=== PATIENT | female | born 1985 | race Caucasian/White ===

== ENCOUNTER 2020-08-17 09:40 | Emergency (ER) | payer OTHER, SELFPAY ==
--- NOTE | 2020-08-17 09:44 | ED.URI ---
HPI - URI/Sore Throat General Chief Complaint: Upper Respiratory Infection Stated Complaint: SORE THROAT Time Seen by Provider: 08/17/20 09:44 Source: patient and RN notes reviewed History of Present Illness HPI Narrative: Patient is a 34-year-old female who presents the urgent care with complaints of a sore throat since yesterday at 2 PM. Patient states it is bothering her specifically on the right side. Patient states her boss was recently diagnosed with strep. Denies any known Covid exposure. States that she has been taking her daily Zyrtec but denies any added use of [id number]-[id number] medication for symptom relief. Denies any additional upper respiratory symptoms. Denies fever, chills, nausea, vomiting. No other acute complaints. No acute distress noted. Patient states that her PCP called her in a prescription for amoxicillin but she wanted to actually have the strep swab tested . States that she has not taken the amoxicillin yet. Patient aware of the plan of care. Some parts of this dictation were generated by voice recognition software and may contain typographical and/or grammatical inaccuracies. Related Data Allergies Allergy/AdvReac Type Severity Reaction Status Date / Time No Known Allergies Allergy Unknown Verified 03/05/20 13:52 Review of Systems Review of Systems: Narrative: CONSTITUTIONAL: Denies fever, chills, or sweats. EYES: Denies visual changes, redness, or discharge. ENT: Reports of sore throat CARDIOVASCULAR: Denies chest pain, palpitations, or edema. RESPIRATORY: Denies cough or dyspnea. GASTROINTESTINAL: Denies abdominal pain, nausea, vomiting, or diarrhea. GENITOURINARY: Denies dysuria or hematuria. SKIN: Denies rash or itching. MUSCULOSKELETAL: Denies back pain, joint pain, or myalgia. NEUROLOGIC: Denies headache, numbness, or weakness. All other systems reviewed are negative, except as documented in HPI. [facility] Past Medical History Medical History (Updated 08/17/20 @ 10:05 by SHANNA Chance) ADHD Anxiety Depression Foot fracture, right Left hand fracture Left scapula fracture Migraine Right arm fracture Right hand fracture Surgical History Surgical History No significant past surgical history Social History Social History Smoking status: Never smoker Alcohol intake: current Comments At the time of my signature, I reviewed and agree with the nursing past medical, surgical, social, and family history. There is no relevant family history pertinent to the patient complaint. Exam Narrative: Exam Narrative: GENERAL: This is a well-nourished, well-developed patient, in no apparent distress. HEAD: normocephalic, atraumatic. EYES: PERRL. Sclera clear/white. Vision is grossly intact. EARS: External ears normal, auditory canals clear and without drainage, TMs normal without perforation. Hearing grossly intact. NOSE: External nose normal with no obvious nasal discharge, nares without redness, no rhinorrhea. THROAT: Mucous membranes moist, moderate erythema noted posterior oropharynx with mild bilateral tonsillar edema without exudate or ulceration. Mild postnasal drainage. NECK: Neck supple, non-tender without lymphadenopathy CARDIOVASCULAR: Regular rate and rhythm without murmurs, gallops, or rubs. RESPIRATORY: Clear to auscultation. Breath sounds equal bilaterally. No wheezes, rales, or rhonchi. SKIN: warm, intact with no suspicious lesions or rash, good texture and turgor. NEURO: awake, alert, and oriented to person, place and time. There were no obvious focal neurologic abnormalities. EXTREMITIES: No clubbing, cyanosis, or edema. Course Vital Signs Vital signs: Vital Signs Temperature 96.5 F L 08/17/20 09:46 Pulse Rate 88 08/17/20 09:46 Respiratory Rate 20 08/17/20 09:46 Blood Pressure 149/75 H 08/17/20 09:46 Pulse Oximetry 99 08/17/20 09:46
[2020-08-17 09:46] VITALS: BP 149/75; PULSE 88; RESP 20; TEMP 35.8; O2SAT 99
== END 2020-08-17 10:11 | disposition home or self-care (01) ==
PROVIDERS: Emergency Provider Nurse Practitioner Family
DX: J02.9 Acute pharyngitis, unspecified (principal)
CPT/HCPCS: 87081; 87880; 99213; G0463

== ENCOUNTER 2020-08-18 08:56 | Outpatient (NON) | payer OTHER, SELFPAY ==
[2020-08-18 22:13] LABS: SARS-CoV-2 RNA PCR Positive
== END 2020-08-18 08:57 ==
LOC: ANHCOVIDDT 08:56
PROVIDERS: Visit Provider Family Medicine
DX: U07.1 COVID-19 (principal)
CPT/HCPCS: 87635; C9803; U0003

== ENCOUNTER 2021-02-13 08:25 | Emergency (ER) | payer OTHER, SELFPAY ==
[2021-02-13 08:36] VITALS: BP 142/100; PULSE 104; RESP 16; TEMP 37.3; O2SAT 98
--- NOTE | 2021-02-13 08:52 | ED.URI ---
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 Patient states she has a shorter 1 to 2-day history of sore throat, with definite hoarseness associated with nasal congestion and definite diarrhea x2-3. No fever, vomiting, earache, blood, travel history, abdominal pain. She has had double vaccination for Covid; no loss of taste/smell, cough, S OB, sneezing/wheezing, CP Related Data Allergies Allergy/AdvReac Type Severity Reaction Status Date / Time No Known Allergies Allergy Unknown Verified 03/05/20 13:52 Review of Systems Review of Systems: Narrative: The patient has been informed that they may have pre-hypertension or Hypertension based on a BP reading in the department. I recommend that the patient call the primary care provider listed on their discharge instructions or a physician of their choice this week to arrange follow up for further evaluation of possible pre-hypertension or Hypertension General/Constitutional: No weight loss,fever Eyes: N0: Redness,discharge Ears/Nose/Throat: No: Epistaxis,ear discharge Respiratory: Denies: Hemoptysis Gastrointestinal: No Vomiting, Bleeding-rectal Skin: No Lumps, eruption Neurologic: No Focal Weakness,Sz Hematologic: Denies: Petechiae/Purpura Psychiatric: No: Suicida ideationl All Other Systems: Reviewed and Negative PMFSH Past Medical History Medical History (Updated 02/13/21 @ 09:09 by Harish Akhtar MD) ADHD Anxiety Depression Foot fracture, right Left hand fracture Left scapula fracture Migraine Right arm fracture Right hand fracture Surgical History Surgical History No significant past surgical history Social History Social History Smoking status: Never smoker Alcohol intake: current Comments At time of signature, agree with nursing past medical, surgical, social and family history. There is no relevant family history pertinent to the presenting complaint Exam Narrative: Exam Narrative: General Appearance: Well appearing, obese/well nourished EYE: PERRLA, Conjunctiva clear Ears: Auditory canal normal, TM normal Nose: Rhinorrhea, Mucousal erythema Mouth/Throat: MM moist, Uvula midline, Pharyngeal erythema without exudate Neck: Supple, No adenopathy Respiratory: No respiratory distress, Breath sounds equal, Clear to auscultation Cardiovascular: RRR, No JVD GI: Soft, nontender Musculoskeletal: Non tender, Normal strength Skin: Warm, Dry Neurological: A&O x3, CN II-XII intact Psychiatric: Normal mood, Normal affect Course Vital Signs Vital signs: Vital Signs Temperature 99.1 F 02/13/21 08:36 Pulse Rate 104 H 02/13/21 08:36 Respiratory Rate 16 02/13/21 08:36 Blood Pressure 142/100 H 02/13/21 08:36 Pulse Oximetry 98 02/13/21 08:36 Temperature 99.1 F 02/13/21 08:36 Pulse Rate 104 H 02/13/21 08:36 Respiratory Rate 16 02/13/21 08:36 Blood Pressure 142/100 H 02/13/21 08:36 Pulse Oximetry 98 02/13/21 08:36 MDM - URI/Sore Throat Lab Data Labs: Strep Screen Presumptive Negative *(Reference Range: Negative)* Strep Screen Presumptive Negative *(Reference Range: Negative)* Discharge Plan Discharge Clinical Impression: Pharyngitis Qualifiers: Pharyngitis/tonsillitis etiology: unspecified etiology Qualified Code(s): J02.9 - Acute pharyngitis, unspecified Patient Disposition: Home, Self-Care Condition: Stable Instructions: Antibiotic Form Prescriptions: New azithromycin 250 mg tablet See Rx
== END 2021-02-13 08:59 | disposition home or self-care (01) ==
PROVIDERS: Emergency Provider Emergency Medicine; PCP Family Medicine
DX: J02.9 Acute pharyngitis, unspecified (principal)
CPT/HCPCS: 87081; 87880; 99213; G0463

== ENCOUNTER 2021-04-11 11:17 | Emergency (ER) | payer OTHER, SELFPAY ==
[2021-04-11 11:32] VITALS: BP 123/76; PULSE 78; RESP 16; TEMP 36.6; O2SAT 100
--- NOTE | 2021-04-11 11:36 | ED.GENADULT ---
HPI - General Adult General Chief complaint: Headache Stated complaint: HEADACHE/VOMITING/ABD PAIN Time Seen by Provider: 04/11/21 12:05 Source: patient and RN notes reviewed Mode of arrival: ambulatory Limitations: no limitations History of Present Illness HPI narrative: 35-year-old female presents concern for migraine headache lasting 36 hours. Reports a history of migraines which she usually controls with Excedrin and/or ibuprofen. Reports she took Excedrin and ibuprofen yesterday with no relief. She reports today she had nausea with 3 episodes of vomiting. Reports she has eaten food after vomiting and has kept it down. She denies fever, body aches, chills, sweats. Reports one episode last night of right upper quadrant abdominal pain that resolved after a bowel movement and vomiting. Denies any current abdominal pain. MD complaint: Headache Related Data Allergies Allergy/AdvReac Type Severity Reaction Status Date / Time No Known Allergies Allergy Unknown Verified 04/11/21 11:31 Review of Systems Review of Systems: Narrative: CONSTITUTIONAL: Denies malaise, chills, sweats, or fever. ENT: Denies rhinorrhea, congestion, sinus pain, otalgia or sore throat. CARDIOVASCULAR: Denies chest pain, palpitations, or edema. RESPIRATORY: Denies cough or dyspnea. GASTROINTESTINAL: Denies current abdominal pain, nausea, vomiting, diarrhea. Reports vomiting earlier today, abdominal pain yesterday GENITOURINARY: Denies dysuria or hematuria. SKIN: Denies rash or itching. MUSCULOSKELETAL: Denies back pain, joint pain, or myalgia. NEUROLOGIC: Denies numbness, weakness. Reports frontal headache. PSYCHIATRIC: Denies anxiety or depression. All systems reviewed & are unremarkable except as noted in HPI and below [facility] Past Medical History Medical History (Updated 04/11/21 @ 12:11 by Effie Gibbs NP) ADHD Anxiety Depression Foot fracture, right Left hand fracture Left scapula fracture Migraine Right arm fracture Right hand fracture Surgical History Surgical History No significant past surgical history Social History Social History Smoking status: Never smoker Alcohol intake: current Comments At time of signature, agree with nursing past medical, surgical, social and family history. There is no relevant family history pertinent to the presenting complaint Exam Narrative: Exam Narrative: GENERAL: Well-appearing, well-nourished, and in no acute distress. HEAD: Normocephalic, atraumatic. EYES: PERRLA, conjunctivae clear, and EOMI. No nystagmus. ENT: Nares clear. Mucous membranes moist. Oropharynx without erythema or lesions. Tonsils not enlarged and without exudate. NECK: Supple. No lymphadenopathy. CHEST: No respiratory distress. Clear to auscultation. No bony deformities, no asymmetry. Speaks in full sentences. HEART: Regular rate and rhythm. ABDOMEN: Soft, nontender, nondistended, normal active bowel sounds, no palpable masses. SKIN: Warm, dry, no rash. NEURO: Alert and oriented x3. No focal deficits. Cranial nerves II through XII grossly intact PSYCH: Normal mood and affect Course Course Emergency Course: Patient is aware of diagnosis, understands and agrees to treatment plan. Anticipatory guidance given. Patient agrees to follow-up as directed and is aware of reasons to seek care at the emergency department. Portions of this record may have been created with voice recognition software Vital Signs Vital signs: Vital Signs Temperature 97.8 F 04/11/21 11:32 Pulse Rate 78 04/11/21 11:32 Respiratory Rate 16 04/11/21 11:32 Blood Pressure 123/76 04/11/21 11:32 Pulse Oximetry 100 04/11/21 11:32 Temperature 97.8 F 04/11/21 11:32 Pulse Rate 78 04/11/21 11:32 Respiratory Rate 16 04/11/21 11:32 Blood Pressure 123/76 04/11/21 11:32 Pulse Oximetry 100 04/11/21 11:32 Review
== END 2021-04-11 12:18 | disposition home or self-care (01) ==
PROVIDERS: Emergency Provider Nurse Practitioner; PCP Family Medicine
DX: G43.019 Migraine without aura, intractable, without status migrainosus (principal)
CPT/HCPCS: 99213; G0463

== ENCOUNTER → 2021-07-05 01:28 | Outpatient (CLI) | payer OTHER, SELFPAY ==
[2021-07-05 19:38] LABS: SARS-CoV-2 RNA PCR Negative
== END ==
PROVIDERS: PCP Family Medicine; Visit Provider Family Medicine
DX: R68.89 Other general symptoms and signs (principal); Z20.822 Contact with and (suspected) exposure to COVID-19
CPT/HCPCS: C9803; U0003; U0005

== ENCOUNTER 2022-01-27 15:45 | Emergency (ER) | payer OTHER, SELFPAY ==
[2022-01-27 15:56] VITALS: BP 144/85; PULSE 77; RESP 16; TEMP 36.3; O2SAT 100
--- NOTE | 2022-01-27 15:58 | ED.URI ---
HPI - URI/Sore Throat General Chief Complaint: Ear Stated Complaint: sore throat, possible left ear infection Time Seen by Provider: 01/27/22 15:58 Source: patient, family, RN notes reviewed and old records reviewed Mode of arrival: ambulatory Limitations: no limitations History of Present Illness HPI Narrative: 46-year-old female presents to the [facility] with complaints of a sore throat and left ear pain. Will no relief. Patient has been fighting a sinus infection for the last 3 weeks. States she woke up this morning with increased ear pain decreased hearing. 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 Denies chest pain or abdominal pain. Denies fevers. MD elicited complaint: sore throat and other (left ear pain) Related Data Allergies Allergy/AdvReac Type Severity Reaction Status Date / Time No Known Allergies Allergy Unknown Verified 01/27/22 15:55 Review of Systems Review of Systems: All systems reviewed & are unremarkable except as noted in HPI and below Constitutional: Constitutional: Reports no additional constitutional complaints, Denies chills, Denies fever(s) and Denies headache(s) Eyes: Eyes: Reports no additional eye complaints ENT: Reports as per HPI, Denies vertigo, Denies dizziness, Denies headache(s), Denies nasal congestion and Denies sore throat Comments: Left ear, rhinorrhea Cardiovascular: Cardiovascular: Reports no additional cardiovascular complaints, Denies chest pain, Denies syncope, Denies rapid heart rate and Denies dyspnea Respiratory: Respiratory: Reports no additional respiratory complaints, Denies cough, Denies dyspnea and Denies wheezing Gastrointestinal: Gastrointestinal: Reports no additional gastrointestinal complaints, Denies abdominal pain, Denies diarrhea, Denies nausea and Denies vomiting Musculoskeletal: Musculoskeletal: Reports no additional musculoskeletal complaints and Denies numbness Integumentary/Breasts: Skin/Breast: Reports system reviewed and no additional complaints, except as docu Neurologic: Reports system reviewed and no additional complaints, except as documented, Denies vertigo, Denies dizziness, Denies syncope, Denies headache(s), Denies focal weakness and Denies numbness Psychiatric: Psychiatric: Reports no additional psychiatric complaints Allergic/Immunologic: Allergic/Immunologic: Reports no additional allergic/immunologic complaints and Denies wheezing PMFSH Past Medical History Medical History (Updated 01/27/22 @ 16:12 by Effie Phan APRN) ADHD Anxiety Depression Foot fracture, right Left hand fracture Left scapula fracture Migraine Right arm fracture Right hand fracture Surgical History Surgical History No significant past surgical history Social History Social History Smoking status: Never smoker Alcohol intake: current Comments At the time of my signature, I reviewed and agree with the nursing past medical, surgical, social, and family history. There is no relevant family history pertinent to the patient complaint. Exam Const: General: cooperative, healthy appearing, no acute distress, well developed and alert Nutritional Appearance: well nourished Orientation/consciousness: patient oriented x3 Limitations: no limitations HENMT: Head: normal to inspection Ears: external ears normal, Abnormal EAC present cerumen impaction on the left and TM abnormal erythematous on the left (Post cerumen removal) General nose exam: Nasal discharge present clear bilateral Face and sinus: normal facial exam and sinuses nontender Throat: posterior oropharynx normal and uvula midline Eyes: Conjunctivae: conjunctivae normal Pupils: Equal, round and reactive pupils present Neck: Neck: normal visual inspection, no lymphadenopathy and no meningeal signs Chest: Chest palpation & inspection: normal inspection of the chest Resp: Effort & Inspection:
== END 2022-01-27 16:20 | disposition home or self-care (01) ==
PROVIDERS: Emergency Provider Nurse Practitioner
DX: H66.92 Otitis media, unspecified, left ear (principal); H61.22 Impacted cerumen, left ear
CPT/HCPCS: 69210; 99213; G0463

== ENCOUNTER 2022-06-29 21:00 | Emergency (ER) | payer OTHER, SELFPAY ==
--- NOTE | ~2022-06-29 | CT_ITS ---
EXAMINATION: CT abdomen pelvis w con DATE: 06/29/2022 23:42 INDICATION: One week of right-sided abdominal pain with nausea and vomiting TECHNIQUE: Computed tomography (CT) of the abdomen and pelvis was performed with 100 mL Omnipaque-350 intravenous contrast. Automated exposure control and iterative reconstruction technique were employe d. The dose-length product was 1588.43 mGy-cm. COMPARISON: 06/17/2017 FINDINGS: Lung bases are clear. Heart size is normal. No pericardial or pleural effusion. Liver, gallbladder, p ancreas, bilateral adrenal glands and kidneys are normal. Nonspecific splenomegaly measuring 17.6 cm craniocaudal length. Small bowel and appendix are normal. Moderate amount of stool at the rectum and distal sigmoid colon was 6 cm ball of stool at the rectum which could be seen with constipation. Blad raymon is normal. T-shaped IUD in expected position within the anteverted uterus. Bilateral adnexa are u nremarkable. No free intraperitoneal gas or fluid. No pathologically enlarged abdominal or pelvic lym phadenopathy. IMPRESSION: 1. Moderate amount of distal colonic stool with 6 cm bulges at rectum which could be seen with consti pation. No other acute intra-abdominal/pelvic process. 2. IUD in expected position. 2. Nonspecific splenomegaly measuring 17.6 cm maximal length. Reviewed, dictated and finalized at location A. IMPRESSION: 1. Moderate amount of distal colonic stool with 6 cm bulges at rectum which cou ld be seen with constipation. No other acute intra-abdominal/pelvic process. 2. IUD in expected position. 2. Nonspecific splenomegaly measuring 17.6 cm maximal length.
[2022-06-29 21:02] VITALS: BP 130/79; PULSE 86; RESP 20; TEMP 36.6; O2SAT 99
[2022-06-29 21:18] LABS: Basophils Absolute Auto 0.1 K/mm3 (0.0-0.1); Basophils Percent Auto 1.5 % (0.2-1.2); Eosinophils Absolute Auto 0.1 K/mm3 (0-0.3); Eosinophils Percent Auto 2.2 % (0-4.4); Hematocrit 47.5 % (37.0-47.0); Hemoglobin 15.6 g/dL (12.0-15.0); Immature Granulocyte Absolute 0.01 K/mm3 (0.00-0.031); Immature Granulocyte Percent A 0.2 % (0-0.5); Lymphocytes Absolute Auto 2.35 K/mm3 (0.9-3.2); Lymphocytes Percent Auto 43.4 % (18.3-44.2); Mean Corpuscular HGB Conc 32.8 g/dl (32-36); Mean Corpuscular Hemoglobin 27.4 pg (26-34); Mean Corpuscular Volume 83.5 fl (80-100); Mean Platelet Volume 10.1 fl (7.4-10.4); Monocytes Absolute Auto 0.6 K/mm3 (0.1-0.6); Monocytes Percent Auto 11.4 % (2.6-8.5); Neutrophils Absolute Auto 2.2 K/mm3 (1.3-6.7); Neutrophils Percent Auto 41.3 % (45.5-73.1); Platelet Count Result 169 k/mm3 (150-375); Red Blood Count 5.69 M/mm3 (4.2-5.4); Red Cell Distribution Width 13.5 % (11.5-14.5); White Blood Count 5.4 K/mm3 (4.5-10.0)
[2022-06-29 21:32] LABS: Alanine Aminotransferase 55 U/L (6-35); Albumin Level 4.3 g/dL (3.5-5.1); Alkaline Phosphatase 92 U/L (38-126); Anion Gap 11 mmol/L (8-16); Aspartate Amino Transferase 51 U/L (14-36); Bilirubin,Total 0.9 mg/dL (0.2-1.3); Blood Urea Nitrogen 7 mg/dL (7-17); Calcium 9.1 mg/dL (8.4-10.2); Carbon Dioxide 22 mmol/L (22-30); Chloride 103 mmol/L (98-107); Estimated CRCL calculation 134 ml/min; Estimated Glomerular Filt Rate > 60; Glucose 93 mg/dL (65-110); Lipase 171 U/L (23-300); Potassium 4.4 mmol/L (3.4-5.0); Sodium 136 mmol/L (137-145)
[2022-06-29 21:43] LABS: Appearance Urine Clear (Clear); Bilirubin Urine Negative (Negative); Color Urine Yellow (Yellow); Glucose Urine UA Negative (Negative); Ketones Urine Negative (Negative); Leukocyte Esterase Ur Negative LEU/UL (Negative); Nitrate Urine Negative (Negative); Protein Urine Negative (Negative); Specific Grav Ur 1.025 (1.001-1.035); Urobilinogen Urine 0.2 mg/dL (<2.0); pH Urine 5.5 (5.0-9.0)
[2022-06-29 21:45] LABS: Add Urine Microscopic? YES; Blood Urine Trace-Intact (Negative)
[2022-06-29 21:48] LABS: Bacteria Urine Trace /hpf; Mucus Urine Rare /lpf; RBC Urine 0-2 /hpf (0-2); Squamous Epithelial Cell Urine Many /hpf (Few)
[2022-06-29 22:46] VITALS: BP 151/85; O2SAT 97
[2022-06-29 23:01] VITALS: BP 130/77; PULSE 86; O2SAT 96
[2022-06-29 23:16] VITALS: BP 126/79; PULSE 79; O2SAT 96
--- NOTE | 2022-06-29 23:21 | ED.GENADULT ---
HPI - General Adult General Chief complaint: Abdominal Pain Stated complaint: ABD Pain for 1 week Time Seen by Provider: 06/29/22 22:40 History of Present Illness HPI narrative: 36-year-old female presenting to the emergency department for evaluation of right upper quadrant like lower quadrant abdominal pain. Patient states that the pain did start about 1 week ago. Patient states that she has had onset of nausea and vomiting today. Patient denies any prior abdominal surgical history. Patient does have a prior history of constipation. Patient has prior history of add. Related Data Allergies Allergy/AdvReac Type Severity Reaction Status Date / Time No Known Allergies Allergy Unknown Verified 06/29/22 21:05 Review of Systems Review of Systems: CONSTITUTIONAL: Denies fever, chills, or sweats. EYES: Denies visual changes, redness, or discharge. ENT: Denies rhinorrhea, congestion, sore throat, or otalgia. CARDIOVASCULAR: Denies chest pain, palpitations, or edema. RESPIRATORY: Denies cough or dyspnea. GASTROINTESTINAL: See HPI GENITOURINARY: Denies dysuria or hematuria. SKIN: Denies rash or itching. MUSCULOSKELETAL: Denies back pain, joint pain, or myalgia. NEUROLOGIC: Denies headache, numbness, or weakness. [facility] Past Medical History Medical History (Updated 06/30/22 @ 00:55 by Joaquín Hansen MD) ADHD Anxiety Depression Foot fracture, right Left hand fracture Left scapula fracture Migraine Right arm fracture Right hand fracture Surgical History Surgical History No significant past surgical history Social History Social History Alcohol intake: current Exam Narrative: APPEARANCE: Well appearing, no pain, no distress, well-nourished. HEAD: normocephalic, atraumatic. EYES: PERRLA/EOMI, conjunctivae clear. NOSE: Normal no drainage THROAT: Pharynx clear, no exudate. NECK: Supple. No adenopathy, no masses. RESPIRATORY: Airway patent, respirations nonlabored. Clear to auscultation bilaterally, no rales, rhonchi, wheezing. CARDIOVASCULAR: Regular rate and rhythm without murmurs rubs or gallops. ABDOMINAL: Soft, right upper and right lower quadrant tenderness to palpation. No palpated fecal impaction on LIGIA MUSCULOSKELETAL: Moves all extremities. Strength/ROM intact, No edema, No calf tenderness. NEURO: Alert. Cranial nerves II through XII intact. Good gait. Good coordination SKIN: Warm, dry. Normal Color PSYCHIATRIC: Normal affect/mood. Course Course Emergency Course: Patient is afebrile with no leukocytosis. Patient's CMP is within normal limits. Mild elevation of AST and ALT.no evidence of urinary tract infection. CT scan showed evidence of fecal impaction/constipation. No palpable stool ball on LIGIA. Patient did receive a soapsuds enema. Patient reports she had improvement of her pain and did have significant results from the soapsuds enema. Patient and family were updated on the treatment plan for home. All questions and concerns were addressed. Patient was encouraged to have close follow-up with her primary care physician. Vital Signs Vital signs: Vital Signs Temperature 97.9 F 06/29/22 21:02 Pulse Rate 86 06/29/22 21:02 Respiratory Rate 20 06/29/22 21:02 Blood Pressure 130/79 06/29/22 21:02 Pulse Oximetry 99 06/29/22 21:02 Oxygen Delivery Room Air 06/29/22 21:02 Temperature 97.9 F 06/29/22 21:02 Pulse Rate 69 06/30/22 00:00 Respiratory Rate 18 06/30/22 00:00 Blood Pressure 126/79 06/29/22 23:16 Pulse Oximetry 97 06/30/22 00:00 Oxygen Delivery Room Air 06/29/22 21:02 Medical Decision Making Vital Signs Vital Signs: Vital Signs Temperature 97.9 F 06/29/22 21:02 Pulse Rate 86 06/29/22 21:02 Respiratory Rate 20 06/29/22 21:02 Blood Pressure 130/79 06/29/22 21:02 Pulse Oximetry 99 06/29/22 21:02 Oxygen Delivery Ro
[2022-06-30] VITALS: PULSE 69; RESP 18; O2SAT 97
--- NOTE | 2022-06-30 01:13 | PC.NURSE ---
Pt was able to pass two large bowel movements and reported her abdomen was no longer hurting.
[2022-06-30 01:14] VITALS: PULSE 70; RESP 18; O2SAT 100
== END 2022-06-30 01:11 | disposition home or self-care (01) ==
PROVIDERS: Emergency Provider Emergency Medicine; PCP Family Medicine
DX: R10.11 Right upper quadrant pain (principal); R10.31 Right lower quadrant pain; K59.00 Constipation, unspecified
CPT/HCPCS: 36415; 74177; 80053; 81001; 81025; 83690; 85025; 99284; Q9967

== ENCOUNTER 2022-09-16 12:13 | Emergency (ER) | payer OTHER, SELFPAY ==
[2022-09-16 12:17] VITALS: BP 125/74; PULSE 84; RESP 16; TEMP 36.9; O2SAT 100
--- NOTE | 2022-09-16 12:20 | ED.EAR ---
HPI - Ear Problem General Chief complaint: Ear Stated complaint: EARACHE Time Seen by Provider: 09/16/22 12:21 Source: patient, RN notes reviewed and old records reviewed Mode of arrival: ambulatory Limitations: no limitations History of Present Illness HPI Narrative: 36-year-old female presents to the [facility] with complaints of any earache since midnight last night. Has used an ear drop without relief. History of ear infections. States that she had the flu approximately 2 weeks ago. Related Data Allergies Allergy/AdvReac Type Severity Reaction Status Date / Time No Known Allergies Allergy Unknown Verified 07/18/22 13:50 Review of Systems Review of Systems: All systems reviewed & are unremarkable except as noted in HPI and below Constitutional: Constitutional: Reports no additional constitutional complaints Eyes: Eyes: Reports no additional eye complaints ENT: Reports as per HPI and Reports otalgia (Left) Cardiovascular: Cardiovascular: Reports no additional cardiovascular complaints, Denies chest pain and Denies dyspnea Respiratory: Respiratory: Reports no additional respiratory complaints, Denies chest congestion, Denies cough and Denies dyspnea Gastrointestinal: Gastrointestinal: Reports no additional gastrointestinal complaints Musculoskeletal: Musculoskeletal: Reports no additional musculoskeletal complaints Integumentary/Breasts: Skin/Breast: Reports system reviewed and no additional complaints, except as docu Neurologic: Reports system reviewed and no additional complaints, except as documented Psychiatric: Psychiatric: Reports no additional psychiatric complaints Allergic/Immunologic: Allergic/Immunologic: Reports no additional allergic/immunologic complaints PMFSH Past Medical History Medical History (Updated 09/16/22 @ 12:28 by Effie Phan APRN) ADHD Anxiety Depression Foot fracture, right Left hand fracture Left scapula fracture Migraine Right arm fracture Right hand fracture Surgical History Surgical History No significant past surgical history Social History Social History Smoking status: Unknown if ever smoked Alcohol intake: current Comments At the time of my signature, I reviewed and agree with the nursing past medical, surgical, social, and family history. There is no relevant family history pertinent to the patient complaint. Exam Const: General: cooperative, healthy appearing, comfortable, no acute distress, well developed, alert and average body habitus Nutritional Appearance: well nourished and obese Orientation/consciousness: patient oriented x3 Limitations: no limitations HENMT: Head: normal to inspection Ears: hearing grossly normal bilaterally, external ears normal, EAC's normal and TM abnormal bulging on the left and erythematous on the left Face/Nose/Sinus: Normal external nose present, Normal nares present, Normal nasal mucous membranes and turbinates present and normal facial exam Face and sinus: normal facial exam Mouth: Yes Normal oral and palatal mucosa present, Yes lip normal and Yes moist mucous membranes Throat: posterior oropharynx normal and uvula midline Eyes: General: appearance normal, both eyes and all related structures Alignment and Position: alignment normal Periorbital: periorbital findings normal Conjunctivae: conjunctivae normal Pupils: Equal, round and reactive pupils present EOM: EOMs intact bilaterally Neck: Neck: normal visual inspection, full ROM, no lymphadenopathy and no meningeal signs Chest: Chest palpation & inspection: normal inspection of the chest Resp: Effort & Inspection: normal respiratory effort and able to speak in complete sentences Auscultation: clear to auscultation bilaterally, no crackles, no rales, no rhonchi and no wheezes Cardio: Rate: regular rate Rhythm: regular rhythm GI: GI Palp: No ab
== END 2022-09-16 12:31 | disposition home or self-care (01) ==
PROVIDERS: Emergency Provider Nurse Practitioner; PCP Family Medicine
DX: H66.92 Otitis media, unspecified, left ear (principal)
CPT/HCPCS: 99213; G0463

== ENCOUNTER 2022-10-06 09:27 | Emergency (ER) | payer OTHER, SELFPAY ==
[2022-10-06 09:43] VITALS: BP 118/81; PULSE 82; RESP 16; TEMP 36.4; O2SAT 99
--- NOTE | 2022-10-06 10:11 | ED.URI ---
HPI - URI/Sore Throat General Chief Complaint: Upper Respiratory Infection Stated Complaint: vomitting, congestion Time Seen by Provider: 10/06/22 10:16 Source: patient and RN notes reviewed Mode of arrival: ambulatory Limitations: no limitations History of Present Illness HPI Narrative: 36-year-old female presents with concerns for vomiting from nasal congestion, low-grade temperature this started yesterday. Reports temperature of a 100?. Reports she vomited throughout night. 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 She denies taking any [id number] medications for her symptoms. MD elicited complaint: nasal congestion Related Data Allergies Allergy/AdvReac Type Severity Reaction Status Date / Time No Known Allergies Allergy Unknown Verified 10/06/22 09:48 Review of Systems Review of Systems: CONSTITUTIONAL: Report malaise, low-grade fever. EYES: Denies visual changes, redness, or discharge. ENT: Reports rhinorrhea, congestion. Denies sinus pain, otalgia and sore throat. CARDIOVASCULAR: Denies chest pain, palpitations, or edema. RESPIRATORY: Denies cough. Denies dyspnea. GASTROINTESTINAL: Denies abdominal pain, nausea, vomiting, diarrhea SKIN: Denies rash or itching. MUSCULOSKELETAL: Denies myalgia. NEUROLOGIC: Denies headache. All systems reviewed & are unremarkable except as noted in HPI and below PMFSH Past Medical History Medical History (Updated 10/06/22 @ 10:37 by Effie Gibbs NP) ADHD Anxiety Depression Foot fracture, right Left hand fracture Left scapula fracture Migraine Right arm fracture Right hand fracture Surgical History Surgical History No significant past surgical history Social History Social History Smoking status: Unknown if ever smoked Alcohol intake: current Comments At time of signature, agree with nursing past medical, surgical, social and family history. There is no relevant family history pertinent to the presenting complaint Exam Narrative: GENERAL: Well-appearing, well-nourished, and in no acute distress. HEAD: Normocephalic EYES: PERRLA, conjunctivae clear ENT: Nares clear, turbinates edematous and erythematous, clear discharge. Mucous membranes moist. TM pearly martinez with dull light reflex bilaterally; no tragal tenderness. Oropharynx not erythematous without lesions. Tonsils not enlarged and without exudate, no drooling, no hoarseness, no trismus, uvula midline. NECK: Supple. No lymphadenopathy CHEST: Clear to auscultation, breath sounds equal. No wheezing, rhonchi, rales, or stridor. No respiratory distress, speaks in full sentences. HEART: Regular rate and rhythm. No murmur heard. SKIN: Warm, dry, no rash. NEURO: Alert and oriented x3. PSYCH: Normal mood and affect Course Course Emergency Course: Patient is aware of diagnosis, understands and agrees to treatment plan. Anticipatory guidance given. Patient agrees to follow-up as directed and is aware of reasons to seek care at the emergency department. Portions of this record may have been created with voice recognition software Level of Care: Express Care Visit Vital Signs Vital signs: Vital Signs Temperature 97.6 F 10/06/22 09:43 Pulse Rate 82 10/06/22 09:43 Respiratory Rate 16 10/06/22 09:43 Blood Pressure 118/81 10/06/22 09:43 Pulse Oximetry 99 10/06/22 09:43 Temperature 97.6 F 10/06/22 09:43 Pulse Rate 82 10/06/22 09:43 Respiratory Rate 16 10/06/22 09:43 Blood Pressure 118/81 10/06/22 09:43 Pulse Oximetry 99 10/06/22 09:43 Reviewed. MDM - URI/Sore Throat MDM Narrative Medical decision making narrative: Differential diagnosis considered: Lored[place] virus, strep pharyngitis, allergic rhinitis, upper respiratory tract infection, sinusitis, rhinosinusitis, nasopharyngitis. viral pharyngitis, otitis media, otitis externa, pneumonia, bronchitis, viral cough syndrome, vir
== END 2022-10-06 10:43 | disposition home or self-care (01) ==
PROVIDERS: Emergency Provider Nurse Practitioner; PCP Family Medicine
DX: B34.9 Viral infection, unspecified (principal); Z20.822 Contact with and (suspected) exposure to COVID-19
CPT/HCPCS: 87426; 87804; 99213; C9803; G0463

== ENCOUNTER 2022-11-27 14:35 | Emergency (ER) | payer OTHER, SELFPAY ==
[2022-11-27 14:50] VITALS: BP 121/81; PULSE 87; RESP 16; TEMP 36.6; O2SAT 100
--- NOTE | 2022-11-27 14:50 | ED.URI ---
HPI - URI/Sore Throat General Chief Complaint: Upper Respiratory Infection Stated Complaint: vomitting, wants strep test Time Seen by Provider: 11/27/22 14:51 Source: patient and RN notes reviewed Mode of arrival: ambulatory Limitations: no limitations History of Present Illness HPI Narrative: 37-year-old female presents with concern for sore throat vomiting which started today. 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 MD elicited complaint: sore throat Related Data Allergies Allergy/AdvReac Type Severity Reaction Status Date / Time No Known Allergies Allergy Unknown Verified 11/27/22 14:44 Review of Systems Review of Systems: CONSTITUTIONAL: Reports malaise EYES: Denies visual changes, redness, or discharge. ENT: Denies rhinorrhea, congestion, sinus pain, otalgia. Reports sore throat. CARDIOVASCULAR: Denies chest pain, palpitations, or edema. RESPIRATORY: Reports cough. Denies dyspnea. GASTROINTESTINAL: Denies abdominal pain, diarrhea. Reports nausea and vomiting SKIN: Denies rash or itching. MUSCULOSKELETAL: Denies myalgia. NEUROLOGIC: Denies headache. All systems reviewed & are unremarkable except as noted in HPI and below PMFSH Past Medical History Medical History (Updated 11/27/22 @ 14:58 by Effie Gibbs NP) ADHD Anxiety Depression Foot fracture, right Left hand fracture Left scapula fracture Migraine Right arm fracture Right hand fracture Surgical History Surgical History No significant past surgical history Social History Social History Smoking status: Former smoker Alcohol intake: current Substance use: never Substance use type: does not use Lack of Transportation: No Lack of Food: Never True Current Housing: I Have Housing Concerned About Future Housing: No Difficulty Paying Gas/Electric Bills: No Difficulty Paying for Meds: No Currently Unemployed: No Education: Trade/Vocational Certificate Difficulty w/ Childcare or Family Care: No Comments At time of signature, agree with nursing past medical, surgical, social and family history. There is no relevant family history pertinent to the presenting complaint Exam Narrative: GENERAL: Well-appearing, well-nourished, and in no acute distress. HEAD: Normocephalic EYES: PERRLA, conjunctivae clear ENT: Nares cleare. Mucous membranes moist. TM pearly martinez with sharp light reflex bilaterally; no tragal tenderness. Oropharynx erythematous without lesions. Tonsils not enlarged and without exudate, no drooling, no hoarseness, no trismus, uvula midline. NECK: Supple. No lymphadenopathy CHEST: Clear to auscultation, breath sounds equal. No wheezing, rhonchi, rales, or stridor. No respiratory distress, speaks in full sentences. HEART: Regular rate and rhythm. No murmur heard. SKIN: Warm, dry, no rash. NEURO: Alert and oriented x3. PSYCH: Normal mood and affect Course Course Emergency Course: Patient is aware of diagnosis, understands and agrees to treatment plan. Anticipatory guidance given. Patient agrees to follow-up as directed and is aware of reasons to seek care at the emergency department. Portions of this record may have been created with voice recognition software Level of Care: Express Care Visit Vital Signs Vital signs: Reviewed. MDM - URI/Sore Throat MDM Narrative Medical decision making narrative: Differential diagnosis considered: Loredo virus, strep pharyngitis, allergic rhinitis, upper respiratory tract infection, sinusitis, rhinosinusitis, nasopharyngitis. viral pharyngitis, otitis media, otitis externa, pneumonia, bronchitis, viral cough syndrome, viral syndrome, and influenza. Exam findings show no acute concerns or changes; patient is non-toxic appearing and is in no distress. Patient is appropriate for outpatient treatment and follow-up. Lab Data Attesta
== END 2022-11-27 15:05 | disposition home or self-care (01) ==
PROVIDERS: Emergency Provider Nurse Practitioner; PCP Family Medicine
DX: J02.0 Streptococcal pharyngitis (principal); Z87.891 Personal history of nicotine dependence
CPT/HCPCS: 87880; 99213; G0463

== ENCOUNTER 2023-02-21 19:17 | Emergency (ER) | payer OTHER, SELFPAY ==
--- NOTE | 2023-02-21 19:25 | ED.SKABFB ---
HPI - Skin/Abscess/Foreign Bdy General Chief complaint: Skin/Abscess/Foreign Body Stated complaint: SPOTS IN MOUTH Source: patient and RN notes reviewed History of Present Illness HPI narrative: 37-year-old female presents urgent care with concerns that she may have [id number] disease. 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 Patient states approximately 1-1/2 hours ago she noticed bumps inside her lower lip and states her palms are itchy. Denies any fevers, chills vomiting, chest pain, or shortness of breath. Some parts of this dictation were generated by voice recognition software and may contain typographical and/or grammatical inaccuracies. Related Data Allergies Allergy/AdvReac Type Severity Reaction Status Date / Time No Known Allergies Allergy Unknown Verified 02/21/23 19:25 Review of Systems Review of Systems: Pertinent positives and pertinent negatives per HPI. [facility] Past Medical History Medical History (Updated 02/21/23 @ 19:33 by Maranda Ortez, [employer]PER) ADHD Anxiety Depression Foot fracture, right Left hand fracture Left scapula fracture Migraine Right arm fracture Right hand fracture Surgical History Surgical History No significant past surgical history Social History Social History Smoking status: Former smoker Alcohol intake: current Substance use: never Substance use type: does not use Lack of Transportation: No Lack of Food: Never True Current Housing: I Have Housing Concerned About Future Housing: No Difficulty Paying Gas/Electric Bills: No Difficulty Paying for Meds: No Currently Unemployed: No Education: Trade/Vocational Certificate Difficulty w/ Childcare or Family Care: No Comments At the time of my signature, I reviewed and agree with the nursing past medical, surgical, social, and family history. There is no relevant family history pertinent to the patient complaint. Exam Narrative: GENERAL: This is a well-nourished, well-developed patient, in no apparent distress. HEAD: normocephalic, atraumatic. EYES: Sclera clear/white. Vision is grossly intact. EARS: External ears normal, auditory canals clear and without drainage. Hearing grossly intact. NOSE: External nose normal with no obvious nasal discharge, nares without redness, no rhinorrhea. THROAT: Mucous membranes moist, posterior pharynx clear. MOUTH: few erythremic bumps noted to inner, lower lip. NECK: Neck supple, non-tender without lymphadenopathy, masses or thyromegaly. CARDIOVASCULAR: Regular rate and rhythm without murmurs, gallops, or rubs. RESPIRATORY: Clear to auscultation. Breath sounds equal bilaterally. No wheezes, rales, or rhonchi. SKIN: warm, intact with no suspicious lesions or rash, good texture and turgor. NEURO: awake, alert, and oriented to person, place and time. There were no obvious focal neurologic abnormalities. EXTREMITIES: No clubbing, cyanosis, or edema. No joint tenderness, effusion, or edema noted. Course Course Level of Care: Express Care Visit Vital Signs Vital signs: reviewed MDM - Skin/Abscess/Foreign Bdy MDM Narrative Medical decision making narrative: This condition is self-limiting disease and spontaneously resolves within 10-14days Treatment is mainly supportive care Hand-hygiene is the most effective way to spread illness Avoid food and drinks that are hot, spicy, salty or acidic as it may cause irritation in your mouth. Cold drinks such as milk or ice water tend to be soothing. Take tylenol/ibuprofen as needed for pain Follow up with family doctor as needed or seek ER visit you have uncontrolled fever, feeling dizzy or dehdyration. Differential Diagnosis Differential diagnosis: Likely viral exanthem, allergic reaction to drug and insect bites Critical Care Time Critical Care Time
[2023-02-21 19:27] VITALS: BP 143/91; PULSE 83; RESP 16; TEMP 36.4; O2SAT 100
== END 2023-02-21 19:37 | disposition home or self-care (01) ==
PROVIDERS: Emergency Provider Nurse Practitioner Family; PCP Family Medicine
DX: B08.4 Enteroviral vesicular stomatitis with exanthem (principal); Z87.891 Personal history of nicotine dependence
CPT/HCPCS: 99213; G0463

== ENCOUNTER 2023-06-30 15:47 | Emergency (ER) | payer OTHER, SELFPAY ==
[2023-06-30 15:53] VITALS: BP 129/86; PULSE 85; RESP 16; TEMP 36.4; O2SAT 99
--- NOTE | 2023-06-30 15:54 | ED.URI ---
HPI - URI/Sore Throat General Chief Complaint: Upper Respiratory Infection Stated Complaint: Body aches Source: patient and RN notes reviewed Mode of arrival: ambulatory Limitations: no limitations History of Present Illness HPI Narrative: patient is a 37-year-old female who presents to the [facility] with complaints of body aches. Patient states that she has also experienced a mild headache that has been intermittent since Thursday. She woke up this morning with generalized body aches. States that they have continued throughout the day. She had a low-grade fever prior to work this morning. She denies sore throat, cough, chest pain, shortness of breath. Denies abdominal pain, vomiting, diarrhea but reports some mild nausea. She endorses some mild nasal congestion. 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 Related Data Home Medications Medication Instructions Recorded Confirmed No Home Medications 06/30/23 06/30/23 Allergies Allergy/AdvReac Type Severity Reaction Status Date / Time No Known Allergies Allergy Unknown Verified 06/30/23 15:58 Review of Systems Review of Systems: CONSTITUTIONAL: Denies fever, chills, or sweats. EYES: Denies visual changes, redness, or discharge. ENT: Denies otalgia and sore throat. Reports nasal congestion. CARDIOVASCULAR: Denies chest pain, palpitations, or edema. RESPIRATORY: Denies cough or dyspnea. GASTROINTESTINAL: Denies abdominal pain, nausea, vomiting, or diarrhea. GENITOURINARY: Denies dysuria or hematuria. SKIN: Denies rash or itching. MUSCULOSKELETAL: Denies back pain and joint pain Reports myalgia. NEUROLOGIC: Reports headache but denies numbness or weakness. Pertinent positives per HPI. [facility] Past Medical History Medical History ADHD Anxiety Depression Foot fracture, right Left hand fracture Left scapula fracture Migraine Right arm fracture Right hand fracture Sinusitis, acute Surgical History Surgical History No significant past surgical history Social History Social History Social History: Caffeine-soda Smoking status: Former smoker Smoking end date: 10/19/04 Alcohol intake: never Substance use: never Substance use type: does not use Lack of Transportation: No Lack of Food: Never True Current Housing: I Have Housing Concerned About Future Housing: No Difficulty Paying Gas/Electric Bills: No Difficulty Paying for Meds: No Currently Unemployed: No Education: Trade/Vocational Certificate Difficulty w/ Childcare or Family Care: No Comments At the time of my signature, I reviewed and agree with the nursing past medical, surgical, social, and family history. There is no relevant family history pertinent to the patient complaint. Exam Narrative: GENERAL: This is a well-nourished, well-developed patient, in no apparent distress. HEAD: normocephalic, atraumatic. EYES: Sclera clear/white. Vision is grossly intact. EARS: External ears normal. Hearing grossly intact. NOSE: External nose normal with no obvious nasal discharge, nares without redness, no rhinorrhea. THROAT: Mucous membranes moist, posterior pharynx clear. NECK: Neck supple, non-tender without lymphadenopathy, masses or thyromegaly. CARDIOVASCULAR: Regular rate and rhythm without murmurs, gallops, or rubs. RESPIRATORY: Clear to auscultation. Breath sounds equal bilaterally. No wheezes, rales, or rhonchi. GASTROINTESTINAL: Abdomen soft, non-tender, nondistended. Bowel sounds are active. No hepato-splenomegaly, or palpable masses. No guarding. SKIN: warm, intact with no suspicious lesions or rash, good texture and turgor. NEURO: awake, alert, and oriented to person, place and time. There were no obvious focal neurologic abnor
== END 2023-06-30 16:37 | disposition home or self-care (01) ==
PROVIDERS: Emergency Provider Nurse Practitioner; PCP Family Medicine
DX: B34.9 Viral infection, unspecified (principal); Z87.891 Personal history of nicotine dependence; Z20.822 Contact with and (suspected) exposure to COVID-19
CPT/HCPCS: 87426; 87804; 99213; C9803; G0463

== ENCOUNTER 2023-07-14 10:40 | Emergency (ER) | payer OTHER, SELFPAY ==
--- NOTE | ~2023-07-14 | US_ITS ---
EXAMINATION: US abdomen limited DATE: 07/14/2023 13:43 INDICATION: Right upper quadrant abdominal pain. TECHNIQUE: Multiple grayscale and Doppler ultrasound images of the abdomen were obtained. COMPARISON: CT abdomen and pelvis 06/29/2022 FINDINGS: The visualized portions of the head and body of the pancreas are normal. The liver is raymond l without focal lesion. There is normal flow in main portal vein. The gallbladder is normal in size. No gallstones. Gallbladder wall thickening is noted. There is no sonographic Burgess sign. The common duct is normal and measures 4 mm. IMPRESSION: 1. Gallbladder wall thickening. This finding may be seen with interstitial edema, chronic liver disea se, or chronic cholecystitis. Reviewed, dictated and finalized at location A. IMPRESSION: 1. Gallbladder wall thickening. This finding may be seen with interstitial alberto a, chronic liver disease, or chronic cholecystitis.
[2023-07-14 10:56] VITALS: BP 135/83; PULSE 80; RESP 18; TEMP 36.6; O2SAT 99
[2023-07-14 11:24] LABS: Basophils Absolute Auto 0.1 K/mm3 (0.0-0.1); Eosinophils Absolute Auto 0.1 K/mm3 (0-0.3); Eosinophils Percent Auto 0.8 % (0-4.4); Hematocrit 45.7 % (37.0-47.0); Hemoglobin 14.7 g/dL (12.0-15.0); Immature Granulocyte Absolute 0.02 K/mm3 (0.00-0.031); Immature Granulocyte Percent A 0.3 % (0-0.5); Lymphocytes Absolute Auto 2.33 K/mm3 (0.9-3.2); Lymphocytes Percent Auto 37.9 % (18.3-44.2); Mean Corpuscular HGB Conc 32.2 g/dl (32-36); Mean Corpuscular Hemoglobin 27.3 pg (26-34); Mean Corpuscular Volume 84.9 fl (80-100); Mean Platelet Volume 10.7 fl (7.4-10.4); Monocytes Absolute Auto 0.6 K/mm3 (0.1-0.6); Monocytes Percent Auto 10.1 % (2.6-8.5); Neutrophils Absolute Auto 3.1 K/mm3 (1.3-6.7); Neutrophils Percent Auto 49.9 % (45.5-73.1); Platelet Count Result 195 k/mm3 (150-375); Red Blood Count 5.38 M/mm3 (4.2-5.4); Red Cell Distribution Width 13.1 % (11.5-14.5); White Blood Count 6.1 K/mm3 (4.5-10.0)
[2023-07-14 11:28] LABS: Appearance Urine Cloudy (Clear); Bacteria Urine Rare /hpf; Bilirubin Urine Negative (Negative); Blood Urine Negative (Negative); Color Urine Yellow (Yellow); Glucose Urine UA Negative (Negative); Ketones Urine Negative (Negative); Leukocyte Esterase Ur 1+ LEU/UL (Negative); Nitrate Urine Negative (Negative); Non Pathogenic Casts 0-2; Protein Urine Negative (Negative); RBC Urine 0-2 /hpf (0-2); Squamous Epithelial Cell Urine Few /hpf (Few)
[2023-07-14 11:33] LABS: Add Urine Microscopic? YES
[2023-07-14 11:36] LABS: Anion Gap 7 mmol/L (8-16); Blood Urea Nitrogen 12 mg/dL (7-17); Carbon Dioxide 27 mmol/L (22-30); Chloride 105 mmol/L (98-107); Potassium 4.1 mmol/L (3.4-5.0); Sodium 139 mmol/L (137-145)
[2023-07-14 11:37] LABS: Alanine Aminotransferase 40 U/L (6-35); Albumin Level 4.5 g/dL (3.5-5.1); Alkaline Phosphatase 83 U/L (38-126); Aspartate Amino Transferase 40 U/L (14-36); Bilirubin,Total 1.4 mg/dL (0.2-1.3); Estimated CRCL calculation 133 ml/min; Estimated Glomerular Filt Rate > 60; Glucose 99 mg/dL (65-110); Lipase 109 U/L (23-300)
--- NOTE | 2023-07-14 13:49 | ED.ABDPAIN ---
HPI - Abdominal Pain General Chief Complaint: Abdominal Pain Stated Complaint: abd pain Time Seen by Provider: 07/14/23 11:45 History of Present Illness HPI narrative: 37-year-old female presented to the emergency department for evaluation of right upper quadrant pain. 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 Patient states she did have some associated nausea and vomiting yesterday. Patient denies any change in her bowel habits. Related Data Home Medications Medication Instructions Recorded Confirmed levonorgestrel 21 mcg/24 hours (8 1 device intrauterine ONCE 07/13/23 07/13/23 yrs) 52 mg intrauterine device (Mirena) Allergies Allergy/AdvReac Type Severity Reaction Status Date / Time No Known Allergies Allergy Unknown Verified 07/14/23 11:16 Review of Systems Review of Systems: All systems reviewed & are unremarkable except as noted in HPI and below PMFSH Past Medical History Medical History ADHD Anxiety Depression Foot fracture, right Left hand fracture Left scapula fracture Migraine Right arm fracture Right hand fracture Sinusitis, acute Surgical History Surgical History No significant past surgical history Social History Social History Social History: Caffeine-soda Smoking status: Former smoker Smoking end date: 10/19/04 Alcohol intake: never Substance use: never Substance use type: does not use Lack of Transportation: No Lack of Food: Never True Current Housing: I Have Housing Concerned About Future Housing: No Difficulty Paying Gas/Electric Bills: No Difficulty Paying for Meds: No Currently Unemployed: No Education: Trade/Vocational Certificate Difficulty w/ Childcare or Family Care: No Exam Narrative: APPEARANCE: Well appearing, no pain, no distress, well-nourished. HEAD: normocephalic, atraumatic. EYES: PERRLA/EOMI, conjunctivae clear. NOSE: Normal no drainage NECK: Supple. No adenopathy, no masses. RESPIRATORY: Airway patent, respirations nonlabored. Clear to auscultation bilaterally, no rales, rhonchi, wheezing. CARDIOVASCULAR: Regular rate and rhythm without murmurs rubs or gallops. ABDOMINAL: Right upper quadrant tenderness to palpation, normal bowel sounds MUSCULOSKELETAL: Moves all extremities. Strength/ROM intact, No edema, No calf tenderness. NEURO: Alert. Cranial nerves II through XII intact. SKIN: Warm, dry. Normal Color Course Course Emergency Course: 37-year-old female presented ED for evaluation for right upper quadrant pain. Patient is afebrile with no leukocytosis and a stable hemoglobin. Patient has normal creatinine function. Patient's T. bili is mildly elevated at 1.4 with mild elevation AST ALT and alk phos. Patient has no elevation in her lipase. UA shows no evidence of infection. On reexamination patient had no tenderness to palpation. Patient was provided outpatient surgical follow-up with Dr. Fuentes. Patient was advised to follow a low-fat diet since it was her dietary changes that triggered to this worsening of her chronic cholecystitis. Patient was educated on reasons to return to the emergency department. All question concerns were addressed. Patient was well-appearing at time of discharge. Vital Signs Vital signs: Vital Signs Temperature 97.9 F 07/14/23 10:56 Pulse Rate 80 07/14/23 10:56 Respiratory Rate 18 07/14/23 10:56 Blood Pressure 135/83 07/14/23 10:56 Pulse Oximetry 99 07/14/23 10:56 Oxygen Delivery Room Air 07/14/23 10:56 Temperature 97.9 F 07/14/23 10:56 Pulse Rate 80 07/14/23 10:56 Respiratory Rate 18 07/14/23 10:56 Blood Pressure 135/83 07/14/23 10:56 Pulse Oximetry 99 07/14/23 10:56
[2023-07-14] MEDS: HYDROcodone/acetaminophen (*CRX) 5-325 MG TABLET 1 TAB PO (15:34)
== END 2023-07-14 16:02 | disposition home or self-care (01) ==
PROVIDERS: Emergency Provider Emergency Medicine; PCP Family Medicine
DX: R10.11 Right upper quadrant pain (principal); Z87.891 Personal history of nicotine dependence
CPT/HCPCS: 36415; 76705; 80053; 81001; 81025; 83690; 85025; 87077; 87086; 87088; 99284; A9270

== ENCOUNTER 2023-07-23 14:25 | Emergency (ER) | payer OTHER, SELFPAY ==
[2023-07-23 14:33] VITALS: BP 115/73; PULSE 81; RESP 16; TEMP 36.5; O2SAT 98
--- NOTE | 2023-07-23 14:55 | ED.SKABFB ---
HPI - Skin/Abscess/Foreign Bdy General Chief complaint: Skin/Abscess/Foreign Body Stated complaint: Infection in toe Time Seen by Provider: 07/23/23 14:42 Source: patient and RN notes reviewed Mode of arrival: ambulatory Limitations: no limitations History of Present Illness HPI narrative: Patient presents today complaining of an infection to her left great toe. Five days ago patient went to a nail salon for a pedicure. Two days later she felt that she had an ingrown toenail and return to the nail salon to have it, ?dug out. ? Yesterday, states that she noted redness and pain to the toe with some drainage. Today it has worsened. Denies pain at rest, the pain increases to 7/10 with any ambulation. She has been soaking her foot in Epsom salt and cleaning with soap and water. Related Data Home Medications Medication Instructions Recorded Confirmed levonorgestrel 21 mcg/24 hours (8 1 device intrauterine ONCE 07/13/23 07/23/23 yrs) 52 mg intrauterine device (Mirena) Allergies Allergy/AdvReac Type Severity Reaction Status Date / Time No Known Allergies Allergy Unknown Verified 07/23/23 14:32 Review of Systems Review of Systems: CONSTITUTIONAL: Denies body aches, fever, chills, or sweats. EYES: Denies visual changes, redness, or discharge. ENT: Denies rhinorrhea, congestion, sore throat, or otalgia. CARDIOVASCULAR: Denies chest pain, palpitations, or edema. RESPIRATORY: Denies cough or dyspnea. GASTROINTESTINAL: Denies abdominal pain, nausea, vomiting, or diarrhea. GENITOURINARY: Denies dysuria or hematuria. SKIN: Denies rash, itching, or wounds. MUSCULOSKELETAL: + redness and swelling to the left great toe NEUROLOGIC: Denies headache, numbness, tingling, or weakness. PSYCH: Denies depression or anxiety. [facility] Past Medical History Medical History ADHD Anxiety Depression Foot fracture, right Left hand fracture Left scapula fracture Migraine Right arm fracture Right hand fracture Sinusitis, acute Surgical History Surgical History No significant past surgical history Social History Social History Social History: Caffeine-soda Smoking status: Former smoker Smoking end date: 10/19/04 Alcohol intake: never Substance use: never Substance use type: does not use Lack of Transportation: No Lack of Food: Never True Current Housing: I Have Housing Concerned About Future Housing: No Difficulty Paying Gas/Electric Bills: No Difficulty Paying for Meds: No Currently Unemployed: No Education: Trade/Vocational Certificate Difficulty w/ Childcare or Family Care: No Comments At time of signature, I have reviewed and agree with nursing past medical, surgical, social and family history unless otherwise noted. Please see nursing chart for further information. There is no relevant family history pertinent to the presenting complaint Exam Narrative: GENERAL: Well-appearing, well-nourished, and in no acute distress. HEAD: Normocephalic, atraumatic. EYES: EOMI. No redness or drainage. Conjunctivae normal. ENT: Mucous membranes pink and moist. NECK: Normal AROM. CHEST: No respiratory distress. EXTREMITIES: Left great toe: Moderate redness and mild swelling to the toe that extends to the interphalangeal joint. Patient has copious purulent drainage from the medial and lateral nail folds. The drainage seems to be originating from the cuticle area. Patient does not seem to have a subungual abscess. The entire toe is tender. Distal sensation intact. Capillary refill normal. Decreased range of motion due to pain. SKIN: Warm, dry, no rash. Capillary refill normal. Normal skin turgor. NEURO: No focal deficits. Alert and oriented x3. Gait steady. PSYCH: Normal affect. No signs of depression or anx
== END 2023-07-23 15:05 | disposition home or self-care (01) ==
PROVIDERS: Emergency Provider Nurse Practitioner; PCP Family Medicine
DX: L03.032 Cellulitis of left toe (principal); Z87.891 Personal history of nicotine dependence
CPT/HCPCS: 99213; G0463

== ENCOUNTER 2023-12-15 10:28 | Outpatient (CLI) | payer OTHER, SELFPAY ==
[2023-12-15 11:09] LABS: Alanine Aminotransferase 43 U/L (6-35); Albumin Level 4.2 g/dL (3.5-5.1); Alkaline Phosphatase 73 U/L (38-126); Amylase 77 U/L (30-110); Aspartate Amino Transferase 34 U/L (14-36); Lipase 118 U/L (23-300)
== END 2023-12-15 10:29 | disposition home or self-care (01) ==
LOC: ANHSURGERY 10:35
PROVIDERS: PCP Family Medicine; Visit Provider Surgery
DX: K81.9 Cholecystitis, unspecified (principal); Z01.818 Encounter for other preprocedural examination
CPT/HCPCS: 36415; 80076; 82150; 83690

== ENCOUNTER 2023-12-17 00:45 | Day surgery (SDC) | payer OTHER, SELFPAY ==
[2023-12-12 14:32] VITALS: BMI 44.6
--- NOTE | 2023-12-12 14:52 | PC.NURSE ---
Report to the Outpatient Waiting Room, entrance under the green pavilion located off [facility], at 0700 on 12/17/23. Planned Procedure Time: 0900. Time changes happen often and if your time is changed the preop area will call you the afternoon before. - You and your visitor will be asked to self-screen and do not enter if you have any COVID symptoms. - A mask is optional within the hospital at this time. Patients may have clear liquids (water, carbonated beverages, clear teas, apple juice) until 3 hours prior to surgery with a maximum of 20 ounces. - No food from midnight until time of surgery. Take the following medications with a SIP of water the morning of surgery: n/a DO NOT STOP ANY OF YOUR OTHER PRESCRIPTION MEDICATIONS PRIOR TO SURGERY ?EXCEPT THE FOLLOWING Medications to discontinue per physician n/a Date to take last dose n/a Please no make-up, nail danish, hairspray, perfume, deodorant, or body powder the day of surgery. No jewelry (including any body piercings) or valuables the day of surgery, leave them at home. Please take a shower or bath the night before, or the morning of, surgery with an antibacterial soap. Wear comfortable, loose fitting clothing. - Jewelry must be removed prior to entering the operating room. Rings and piercings that are not removed may be cut off. - The hospital will not accept responsibility for valuables. - Please leave all valuables, including medications, at home the day of surgery. If you are going home after surgery, a licensed regional intermodal truck driver must drive you home. - NO public transportation without another adult if you receive anesthesia. - We recommend that an adult stay with you for 24 hours following discharge. - We also recommend that you do not drive, make important decision, drink alcoholic beverages, or take any drugs that were not prescribed by your health care provider for at least 24 hours after your discharge time. Follow any additional instructions given to you from your surgeon. If you or anyone in your household have experienced Covid symptoms in the past week, please notify your surgeon or the nurse liaison at the phone number below for possible testing. Telephone instructions given to patient and asked if any additional questions and then verbalized understanding. Patient advised to call surgeon office or pre surgery nurse liaison [phone] if any additional questions.
[2023-12-17] VITALS (9 sets, daily range): BP systolic 116–136; BP diastolic 67–84; PULSE 67–82; RESP 14–18; TEMP 36.1–36.6; O2SAT 92–99; BMI 45.1
--- NOTE | 2023-12-17 07:20 | WPDHPUPDATE1 ---
History and Physical Update Update Date/Time: 12/17/23 07:20 History and Physical has been reviewed, including an updated exam of the patient. There are NO changes in the patient's condition. Risks, benefits, and alternatives have been discussed and questions answered. Patient agrees to proceed with procedure.
--- NOTE | 2023-12-17 07:43 | WPDANESEPPF ---
Anes - Initial Pre Proc Eval Procedure: Operation Date: 12/17/23 09:00 Proposed Procedures p Laparoscopic Cholecystectomy - Minal Li MD Date/Time: 12/17/23 07:43 Surgeon: Minal Li MD Pre Op Diagnosis: chronic cholecystitis Patient Data Age: 38 Gender: F Height: 1.7 m Weight: 129.27 kg Allergies Allergy/AdvReac Type Severity Reaction Status Date / Time No Known Allergies Allergy Unknown Verified 12/12/23 14:30 Home Medications Medication Instructions Recorded Confirmed Type levonorgestrel 21 mcg/24 hours (8 1 device intrauterine ONCE 07/13/23 12/12/23 History yrs) 52 mg intrauterine device (Mirena) ibuprofen 200 mg capsule 200 mg PO Q6H PRN pain 11/26/23 12/12/23 History esomeprazole magnesium 20 mg 20 mg PO DAILY 12/01/23 12/12/23 History capsule,delayed release (Nexium) Patient hx anesthesia problems: none Family hx anesthesia problems: none Results Review: All pre-operative results and documents have been reviewed as part of the pre-operative evaluation. [facility] Past Medical History Medical History ADHD Anxiety Depression Foot fracture, right Left hand fracture Left scapula fracture Migraine Right arm fracture Right hand fracture Sinusitis, acute Surgical History Surgical History H/O wisdom tooth extraction No significant past surgical history Family History Family History Father CAD (coronary artery disease) Grandparent Leukemia CAD (coronary artery disease) Social History Social History Social History: Caffeine-soda Smoking status: Former smoker Tobacco type: cigarettes and e-cigarettes/vaping Smoking end date: 12/12/19 Additional smoking assessment comments: 3-4 cigarettes/day Alcohol intake: former Substance use: former Substance use type: marijuana Last use: 2004 Lack of Transportation: No Lack of Food: Never True Current Housing: I Have Housing Concerned About Future Housing: No Difficulty Paying Gas/Electric Bills: No Difficulty Paying for Meds: No Currently Unemployed: No Education: Trade/Vocational Certificate Difficulty w/ Childcare or Family Care: No Living arrangements: with family Spiritual care concerns: No Anes - Eval Final PreProcedure Day of Procedure 12/17/23 07:43 Patient weight: morbidly obese Heart: regular rate and rhythm Lungs: clear to auscultation Airway: Mallampati scale class II Neurological: alert and oriented Last oral intake: >/= 8 hours ASA classification: III Emergent: no Anesthetic plan: proceed Anesthesia type and monitoring: general ETT and standard monitoring Results Review: All pre-operative results and documents have been reviewed as part of the pre-operative evaluation. Informed Consent: The patient's anesthetic plan and its attendant risks and benefits were discussed with the patient/family/POA. Questions were solicited and answers provided to the satisfaction of the patient/family/POA.
[2023-12-17] MEDS: LACTATED RINGERS 1,000 ML 30 ML IV CONT ×2 (07:50→09:46)
[2023-12-17] MEDS: ACETAMINOPHEN 500 MG TABLET 1000 MG PO (07:52)
[2023-12-17] MEDS: KETOROLAC 15 MG/ML VIAL (*BKC) IV PUSH (07:52)
[2023-12-17] MEDS: ceFAZolin 3 GM/D5W 100 ML 100 ML IVPB (08:49)
[2023-12-17] MEDS: BUPIVACAINE/EPINEPHRINE 0.5% 50 ML VIAL 30 ML INFILTRATE (09:14)
--- NOTE | 2023-12-17 09:41 | W.PM.PROC2 ---
Procedure Note - Detailed Date of Procedure 12/17/23 Pre-op Diagnosis chronic cholecystitis Post-op Diagnosis Same Procedure Performed Laparoscopic cholecystectomy Surgeon Minal Li MD Anesthesia General Indications 38-year-old female presented to the office complaining of postprandial right upper quadrant abdominal pain associated with nausea and vomiting. Workup including imaging significant for cholecystitis. Findings Cholecystitis Description of Procedure The patient was taken to the operating room placed in the supine position. After adequate induction of general anesthesia, the patient was prepped and draped in normal sterile fashion. A time-out was then performed to verify the patient's identity as well as the procedure being performed. I then made a 5 mm incision in the infraumbilical region. Through this, a Veress needle was placed into the peritoneal cavity and CO2 gas was then insufflated. After adequate pneumoperitoneum was achieved, the Veress needle was removed and a 5 mm optiview trocar was placed through this incision under direct visualization. I then placed the laparoscope through this trocar site and under direct visualization placed a further 12 mm subxiphoid port as well as 2 additional 5 mm ports in the right upper abdomen. The gallbladder was then identified and was noted to be moderately inflamed and distended. There was noted to be some adhesions to gallbladder including the stomach, these adhesions were taken down sharply. Once freed, I was able to place a grasper at the dome of the gallbladder and this was retracted anterior and cephalad up over the liver. A 2nd retractor was then placed at the infundibulum and retracted laterally, this allowed visualization of the triangle of Calot. I then was able to visualize the cystic duct in its entirety from its proximal insertion into the gallbladder, to its distal junction with the common hepatic/common bile duct junction. At this point, I carefully skeletonized the proximal cystic duct with the [place] dissector. I then clipped and transected the proximal cystic duct. Next I visualized the cystic artery. Again the artery was skeletonized, clipped, and transected. I then used the Bovie cautery to take down the peritoneal attachments of the gallbladder off the liver bed. This was somewhat difficult given the amount of inflammation in the posterior space. Once the gallbladder specimen was completely detached, an endo-pouch was placed through the 12 mm port site. I then placed the gallbladder specimen into the Endo pouch and removed the endo-pouch from the 12 mm port site. The specimen will now be sent to pathology for further review. I then copiously irrigated the right upper quadrant. Hemostasis was noted in the liver bed, the clips were noted to be in good position on both the cystic duct stump and the cystic artery stump. No other pathology was noted in the right upper quadrant. I then moved the laparoscope to the subxiphoid port. No iatrogenic injury or other pathology was noted in the lower abdomen. I then closed the 12 mm trocar site under direct visualization using the Davis cone and 0 Vicryl suture. At this point, the abdomen was desufflated and all ports removed. All port sites were then closed with 4.O Monocryl subcuticular sutures. Dermabond was placed on each incision. The patient tolerated the procedure well, was extubated in the operating room postoperative and will be transferred to the recovery room in stable condition Estimated Blood Loss 10 Drains No Packing No Pathology Yes Complications No immediate complications Condition Stable Disposition PACU [facility] Billing Surgery - Charge Forward: Surgery Billing
[2023-12-17] MEDS: fentaNYL CITRATE INJ (*CRX) 100 MCG/2 ML VIAL 25 MCG IV PUSH ×8 (10:11→10:36)
[2023-12-17] MEDS: ONDANSETRON INJ 4 MG/2 ML VIAL IV PUSH (10:44)
[2023-12-17] MEDS: oxyCODONE HCL (*CRX) 5 MG TAB IR PO (11:01)
== END 2023-12-17 12:05 | disposition home or self-care (01) ==
PROVIDERS: PCP Family Medicine; Visit Provider Surgery
PROC: 0FT44ZZ Resection of Gallbladder, Percutaneous Endoscopic Approach (ICD-10-PCS; CPT 47562; principal; 2023-12-17 09:00)
DX: K81.1 Chronic cholecystitis (principal); F90.9 Attention-deficit hyperactivity disorder, unspecified type; F41.9 Anxiety disorder, unspecified; F32.A Depression, unspecified; F17.290 Nicotine dependence, other tobacco product, uncomplicated; F12.90 Cannabis use, unspecified, uncomplicated; E66.01 Morbid (severe) obesity due to excess calories; Z68.42 Body mass index [BMI] 45.0-49.9, adult; Z82.49 Family history of ischemic heart disease and other diseases of the circulatory system
CPT/HCPCS: 47562; 88304; A9270; J0690; J1100; J1885; J2250; J2405; J3010; J7030; J7120

== ENCOUNTER 2024-04-20 15:14 | Emergency (ER) | payer BC, SELFPAY ==
--- NOTE | 2024-04-20 15:21 | ED.EYEPROB ---
HPI - Eye Problem General Chief complaint: Eye Problems Stated complaint: [place] [facility] Time Seen by Provider: 04/20/24 15:18 Source: patient Mode of arrival: ambulatory Limitations: no limitations History of Present Illness HPI Narrative: Lavern is a 38-year-old male patient presenting to the clinic today with complaints possible conjunctivitis-reports that her right eye started draining and became itchy 3 days ago. Is draining a greenish-yellow discharge now the left eye has begun. She thought it was allergies at . 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 She denies any URI symptoms. Related Data Home Medications Medication Instructions Recorded Confirmed levonorgestrel 21 mcg/24 hr (up to 1 device intrauterine ONCE 07/13/23 04/20/24 8 years) 52 mg intrauterine device (Mirena) Allergies Allergy/AdvReac Type Severity Reaction Status Date / Time No Known Allergies Allergy Unknown Verified 04/20/24 15:21 Review of Systems Review of Systems: Pertinent positives per HPI. Patient denies any fever, chills, rash, headache, visual changes, dizziness, cough, runny nose, sore throat, shortness of breath, chest pain, palpitations, nausea, vomiting, diarrhea, constipation, abdominal pain, or any urinary issues. [facility] Past Medical History Medical History ADHD Anxiety Depression Foot fracture, right Left hand fracture Left scapula fracture Migraine Right arm fracture Right hand fracture Sinusitis, acute Surgical History Surgical History H/O wisdom tooth extraction Hx laparoscopic cholecystectomy Minal Li MD 12/17/23 No significant past surgical history Family History Family History Father CAD (coronary artery disease) Grandparent Leukemia CAD (coronary artery disease) Social History Social History Social History: Caffeine-soda Smoking status: Former smoker Tobacco type: cigarettes and e-cigarettes/vaping Smoking end date: 12/12/19 Additional smoking assessment comments: 3-4 cigarettes/day Alcohol intake: former Substance use: former Substance use type: marijuana Last use: 2004 Lack of Transportation: No Lack of Food: Never True Current Housing: I Have Housing Concerned About Future Housing: No Difficulty Paying Gas/Electric Bills: No Difficulty Paying for Meds: No Currently Unemployed: No Education: Trade/Vocational Certificate Difficulty w/ Childcare or Family Care: No Living arrangements: with family Spiritual care concerns: No Comments At the time of my signature, I reviewed and agree with the nursing past medical, surgical, social, and family history. There is no relevant family history pertinent to the patient complaint. Exam Narrative: General: Well-developed, well nourished, in no apparent distress Head: Normocephalic, atraumatic Eyes: Pupils equally round and reactive to light bilaterally, EOM intact, sclera and conjunctive injected with yellowish green mucopurulent discharge, mild lids swelling to the right lower lids, left lids normal Ears: TMs intact and clear, ear canals clear, no drainage, grossly hearing normal. Nose: Nares patent, no discharge, no inflammation, no sinus tenderness. Mouth: Oropharynx without lesions or masses, good dentition, MMM. Neck: Supple, trachea midline, no enlargement of anterior or posterior cervical nodes, no thyroid masses or goiter palpable. Cardio: Regular rate and rhythm, s1 and s2 normal, no murmur appreciated. Resp: Clear to auscultation bilaterally anteriorly and posteriorly, no rhonchi, rales, wheezing or rubs Course Course Emergency Course: Portions of this record may have been created with voice recognition software. Level of Care: Express Care Visit Vital
[2024-04-20 15:23] VITALS: BP 132/78; PULSE 70; RESP 16; TEMP 36.2; O2SAT 100
== END 2024-04-20 15:31 | disposition home or self-care (01) ==
PROVIDERS: Emergency Provider Nurse Practitioner Family; PCP Family Medicine
DX: H10.33 Unspecified acute conjunctivitis, bilateral (principal); Z87.891 Personal history of nicotine dependence
CPT/HCPCS: 99213; G0463

== ENCOUNTER 2024-06-16 08:30 | Emergency (ER) | payer MEDICAID, SELFPAY ==
--- NOTE | 2024-06-16 08:46 | ED.URI ---
HPI - URI/Sore Throat General Chief Complaint: Upper Respiratory Infection Stated Complaint: SORE THROAT Time Seen by Provider: 06/16/24 08:46 Source: patient Mode of arrival: ambulatory Limitations: no limitations History of Present Illness HPI Narrative: 38 yo F presents with c/o sore throat, throat swelling since last night. C/o fatigue and headaches. Afebrile. Denies nausea vomiting. Patient concerned for strep throat. All systems reviewed and negative except as noted above. Related Data Home Medications Medication Instructions Recorded Confirmed levonorgestrel 21 mcg/24 hr (up to 1 device intrauterine ONCE 07/13/23 06/16/24 8 years) 52 mg intrauterine device (Mirena) semaglutide (weight loss) 0.5 0.5 mg subcut WEEKLY 06/16/24 06/16/24 mg/0.5 mL subcutaneous pen injector (Wegovy) Allergies Allergy/AdvReac Type Severity Reaction Status Date / Time No Known Allergies Allergy Unknown Verified 06/16/24 08:44 Review of Systems Review of Systems: CONSTITUTIONAL: Denies fever, chills, or sweats. Reports fatigue. EYES: Denies visual changes, redness, or discharge. ENT: Denies rhinorrhea, congestion. Reports sore throat. Denies otalgia. CARDIOVASCULAR: Denies chest pain, palpitations, or edema. RESPIRATORY: Denies cough or dyspnea. GASTROINTESTINAL: Denies abdominal pain, nausea, vomiting, or diarrhea. GENITOURINARY: Denies dysuria or hematuria. SKIN: Denies rash or itching. MUSCULOSKELETAL: Denies back pain, joint pain, or myalgia. NEUROLOGIC: Reports headache. Denies numbness, or weakness. PSYCHIATRIC: Denies anxiety or depression. All other systems reviewed are negative, except as documented in HPI. [facility] Past Medical History Medical History ADHD Anxiety Depression Foot fracture, right Left hand fracture Left scapula fracture Migraine Right arm fracture Right hand fracture Sinusitis, acute Surgical History Surgical History H/O wisdom tooth extraction Hx laparoscopic cholecystectomy Minal Li MD 12/17/23 No significant past surgical history Family History Family History Father CAD (coronary artery disease) Grandparent Leukemia CAD (coronary artery disease) Social History Social History Social History: Caffeine-soda Smoking status: Former smoker Tobacco type: cigarettes and e-cigarettes/vaping Smoking end date: 12/12/19 Additional smoking assessment comments: 3-4 cigarettes/day Alcohol intake: former Substance use: former Substance use type: marijuana Last use: 2004 Lack of Transportation: No Lack of Food: Never True Current Housing: I Have Housing Concerned About Future Housing: No Difficulty Paying Gas/Electric Bills: No Difficulty Paying for Meds: No Currently Unemployed: No Education: Trade/Vocational Certificate Difficulty w/ Childcare or Family Care: No Living arrangements: with family Spiritual care concerns: No Comments At time of signature, agree with nursing past medical, surgical, social and family history. There is no relevant family history pertinent to the presenting complaint. Exam Narrative: GENERAL: This is a well-nourished, well-developed patient, patient ill-appearing but in no distress HEAD: normocephalic, atraumatic. EYES: PERRL. Sclera clear/white. Vision is grossly intact. EARS: External ears normal, auditory canals clear and without drainage, TMs normal without perforation. Hearing grossly intact. NOSE: External nose normal with no obvious nasal discharge, nares without redness, no rhinorrhea. THROAT: Mucous membranes moist, erythema, tonsils 1+ bilaterally with exudates NECK: Neck supple, non-tender without lymphadenopathy, masses or thyromegaly. CARDIOVASCULAR: Regular
[2024-06-16 08:49] VITALS: BP 115/83; PULSE 98; RESP 16; TEMP 36.6; O2SAT 98
[2024-06-16 09:09] LABS: EDSTREPNEGPOS1 Negative
== END 2024-06-16 09:15 | disposition home or self-care (01) ==
PROVIDERS: Emergency Provider Nurse Practitioner Family; PCP Family Medicine
DX: J03.00 Acute streptococcal tonsillitis, unspecified (principal); Z87.891 Personal history of nicotine dependence
CPT/HCPCS: 87880; 99213; G0463

== ENCOUNTER 2024-07-30 10:17 | Emergency (ER) | payer BC, SELFPAY ==
[2024-07-30 10:27] VITALS: BP 112/81; PULSE 90; RESP 16; TEMP 36.6; O2SAT 99
--- NOTE | 2024-07-30 10:31 | ED.ABDPAIN ---
HPI - Abdominal Pain General Chief Complaint: Nausea/Vomiting/Diarrhea Stated Complaint: stomach issuses Time Seen by Provider: 07/30/24 10:55 Source: patient Mode of arrival: ambulatory Limitations: no limitations History of Present Illness HPI narrative: Lavern is a 38-year-old female patient presenting to the clinic today with acute nausea and vomiting that lasted approximately 9 hours. She reports she has vomited 4-5 times. Does have some abdominal cramping prior to vomiting. Last menstrual period was unknown as she has been on the neal. She states that she is sexually active. She also reports having a slight headache and some chills. She denies any sore throat. No sick contacts. Related Data Home Medications Medication Instructions Recorded Confirmed levonorgestrel 21 mcg/24 hr (up to 1 device intrauterine ONCE 07/13/23 07/30/24 8 years) 52 mg intrauterine device (Mirena) semaglutide (weight loss) 0.5 0.5 mg subcut WEEKLY 06/16/24 07/30/24 mg/0.5 mL subcutaneous pen injector (Wegovy) Allergies Allergy/AdvReac Type Severity Reaction Status Date / Time No Known Allergies Allergy Unknown Verified 07/30/24 10:46 Review of Systems Review of Systems: Pertinent positives per HPI. Patient denies any fever, chills, rash, visual changes, dizziness, cough, shortness of breath, chest pain, palpitations, diarrhea, constipation, abdominal pain, or any urinary issues. [facility] Past Medical History Medical History ADHD Anxiety Depression Foot fracture, right Left hand fracture Left scapula fracture Migraine Right arm fracture Right hand fracture Sinusitis, acute Surgical History Surgical History H/O wisdom tooth extraction Hx laparoscopic cholecystectomy Minal Li MD 12/17/23 No significant past surgical history Family History Family History Father CAD (coronary artery disease) Grandparent Leukemia CAD (coronary artery disease) Social History Social History Social History: Caffeine-soda Smoking status: Former smoker Tobacco type: cigarettes and e-cigarettes/vaping Smoking end date: 12/12/19 Additional smoking assessment comments: 3-4 cigarettes/day Alcohol intake: former Substance use: former Substance use type: marijuana Last use: 2004 Lack of Transportation: No Lack of Food: Never True Current Housing: I Have Housing Concerned About Future Housing: No Difficulty Paying Gas/Electric Bills: No Difficulty Paying for Meds: No Currently Unemployed: No Education: Trade/Vocational Certificate Difficulty w/ Childcare or Family Care: No Living arrangements: with family Spiritual care concerns: No Comments At the time of my signature, I reviewed and agree with the nursing past medical, surgical, social, and family history. There is no relevant family history pertinent to the patient complaint. Exam Narrative: General: Well-developed, well nourished, in no apparent distress Head: Normocephalic, atraumatic Eyes: Pupils equally round and reactive to light bilaterally, EOM intact, sclera and conjunctive clear, no discharge, lids normal Ears: TMs intact and clear, ear canals clear, no drainage, grossly hearing normal. Nose: Nares patent, no discharge, no inflammation, no sinus tenderness. Mouth: Oral pharynx without lesions or masses, good dentition, MMM. Neck: Supple, trachea midline, no enlargement of anterior or posterior cervical nodes, no thyroid masses or goiter palpable. Cardio: Regular rate and rhythm, s1 and s2 normal, no murmur appreciated. Resp: Clear to auscultation bilaterally, no rhonchi, rales, wheezing or rubs Course Course Emergency Course: Portions of this record may have been created
[2024-07-30 10:49] LABS: EDCOVIDSCREEN Negative (Negative); EDINFLUASCREEN Negative (Negative); EDINFLUBSCREEN Negative (Negative)
[2024-07-30 11:12] LABS: BEDSIDEPREGUCG Negative (Negative); EDUAAPPEAR Clear; EDUABILI Negative (Negative); EDUABLOOD 3+ (Negative); EDUACOLOR1 Amber; EDUAGLUCOSE Negative (Negative); EDUAKETONE Negative (Negative); EDUALEUKO Negative (Negative); EDUANITRATE Negative (Negative); EDUAPH 6.5; EDUAPROTEIN Trace (Negative); EDUAUROBILI 0.2
[2024-07-30] MEDS: ONDANSETRON HCL ODT 4 MG TABLET SUBLINGUAL (11:18)
--- NOTE | 2024-07-30 13:30 | PC.NURSE ---
1128- Ice chips given for PO challenge
== END 2024-07-30 11:40 | disposition home or self-care (01) ==
PROVIDERS: Emergency Provider Nurse Practitioner Family; PCP Family Medicine
DX: R11.2 Nausea with vomiting, unspecified (principal); Z79.899 Other long term (current) drug therapy; Z87.891 Personal history of nicotine dependence; Z20.822 Contact with and (suspected) exposure to COVID-19
CPT/HCPCS: 81003; 81025; 87086; 87426; 87804; 99213; A9270; G0463

== ENCOUNTER 2024-11-10 16:25 | Emergency (ER) | payer OTHER, SELFPAY ==
[2024-11-10 16:48] VITALS: BP 116/77; PULSE 85; RESP 16; TEMP 36.7; O2SAT 99
[2024-11-10 17:00] LABS: EDUAAPPEAR Cloudy; EDUABILI Negative (Negative); EDUABLOOD Negative (Negative); EDUACOLOR1 Yellow; EDUAGLUCOSE Negative (Negative); EDUAKETONE Negative (Negative); EDUALEUKO Trace (Negative); EDUANITRATE Negative (Negative); EDUAPROTEIN Trace (Negative)
--- NOTE | 2024-11-10 17:01 | ED.FEMALEGU ---
HPI - Female Genitourinary General Chief complaint: Urogenital-Female Stated complaint: Bladder Infection Time Seen by Provider: 11/10/24 16:55 Source: patient and RN notes reviewed Mode of arrival: ambulatory Limitations: no limitations History of Present Illness HPI Narrative: Patient presents today complaining of dysuria, frequency, incomplete bladder emptying since yesterday as well as some mild cramps with urination. No [id number] treatment prior to arrival. No abdominal pain or back pain. Related Data Home Medications ?Medication ?Instructions ?Recorded ?Confirmed ?Last Taken ?Type levonorgestrel (Mirena) 1 device intrauterine ONCE 07/13/23 11/10/24 Unknown History semaglutide (weight loss) 0.5 0.5 mg subcut WEEKLY 06/16/24 11/10/24 Unknown History mg/0.5 mL subcutaneous pen injector (Wegovy) phentermine 37.5 mg tablet 37.5 mg PO DAILY 10/20/24 Unknown History Allergies Allergy/AdvReac Type Severity Reaction Status Date / Time No Known Allergies Allergy Unknown Verified 11/10/24 16:44 Review of Systems Review of Systems: CONSTITUTIONAL: Denies body aches, fever, chills, or sweats. EYES: Denies visual changes, redness, or discharge. ENT: Denies rhinorrhea, congestion, sore throat, or otalgia. CARDIOVASCULAR: Denies chest pain, palpitations, or edema. RESPIRATORY: Denies cough or dyspnea. GASTROINTESTINAL: Denies abdominal pain, nausea, vomiting, or diarrhea. GENITOURINARY: + dysuria, frequency, incomplete emptying, lower abdominal cramping SKIN: Denies rash, itching, or wounds. MUSCULOSKELETAL: Denies back pain, joint pain, or myalgia. NEUROLOGIC: Denies headache, numbness, tingling, or weakness. PSYCH: Denies depression or anxiety. [facility], [facility] Past Medical History Medical History Sinusitis, acute ADHD Anxiety Depression Left scapula fracture Right arm fracture Right hand fracture Left hand fracture Foot fracture, right Migraine Surgical History Surgical History Hx laparoscopic cholecystectomy Minal Li MD 12/17/23 H/O wisdom tooth extraction No significant past surgical history Family History Family History Father CAD (coronary artery disease) Grandparent Leukemia CAD (coronary artery disease) Social History Social History Social History: Caffeine-soda Smoking status: Former smoker Tobacco type: cigarettes and e-cigarettes/vaping Smoking end date: 12/12/19 Additional smoking assessment comments: 3-4 cigarettes/day Alcohol intake: former Substance use: former Substance use type: marijuana Last use: 2004 Lack of Transportation: No Lack of Food: Never True Current Housing: I Have Housing Concerned About Future Housing: No Difficulty Paying Gas/Electric Bills: No Difficulty Paying for Meds: No Currently Unemployed: No Education: Trade/Vocational Certificate Difficulty w/ Childcare or Family Care: No Living arrangements: with family Spiritual care concerns: No Comments At time of signature, I have reviewed and agree with nursing past medical, surgical, social and family history unless otherwise noted. Please see nursing chart for further information. There is no relevant family history pertinent to the presenting complaint Exam Narrative: GENERAL: Well-appearing, well-nourished, and in no acute distress. HEAD: Normocephalic, atraumatic. EYES: EOMI. No redness or drainage. Conjunctivae normal. ENT: Mucous membranes pink and moist. NECK: Normal AROM. CHEST: No respiratory distress. Clear to auscultation. HEART: Regular rate and rhythm. No murmur appreciated. Normal peripheral pulses. ABDOMEN: Soft, nondistended, normal active bowel sounds. -CVAT MUSCULOSKELETAL: No bony tenderness. EXTREMITIES: Normal range of motion. No edema. SKIN: Warm, dry, no rash. Capillary refill normal. Normal skin turgor. NEURO: No focal deficits. Alert and oriented x3. Gait steady. PSYCH: Normal affect. No signs of depression or anxiety. Course Course Level of Care: Express Care Visit Vital Signs Vital signs: Vital Signs Temperature 98.1 F 11/10/24 16:48 Pulse Rate 85 11/10/24 16:48 Respiratory Rate 16 11/10/24 16:48 Blood Pressure 116/77 11/10/24 16:48 Pulse Oximetry 99 11/10/24 16:48 Temperature 98.1 F 11/10/24 16:48 Pulse Rate 85 11/10/24 16:48 Respiratory Rate 16 11/10/24 16:48 Blood Pressure 116/77 11/10/24 16:48 Pulse Oximetry 99 11/10/24 16:48 Reviewed MDM - Female Genitourinary MDM Narrative Medical decision making narrative: Urinalysis shows trace leukocytes and trace protein. Along with urinalysis and patient's symptoms, she will be treated for UTI with Augmentin. Anticipatory guidance given. Differential Diagnosis Differential diagnosis: Likely urinary tract infection, vaginitis and cystitis Lab Data Attestation: I reviewed the patient's lab results. Labs: Lab Results 11/10/24 Range/Units 16:57 POC Urine Color Yellow POC Urine Clarity Cloudy POC Urine pH 7.0 POC Ur Specif [place] 1.020 POC Urine Protein Trace (Negative) POC Ur Glucose (UA) Negative (Negative) POC Urine Ketones Negative (Negative) POC Urine Blood Negative (Negative) POC Urine Nitrite Negative (Negative) POC Urine Bilirubin Negative (Negative) POC Urine Urobilinogen 1.0 POC U Leukocyte Esteras Trace (Negative) Critical Care Time Critical Care Time Critical Care Time: No Discharge Plan Discharge Clinical Impression: UTI (urinary tract infection) Qualifiers: Urinary tract infection type: acute cystitis Hematuria presence: without hematuria Qualified Code(s): N30.00 - Acute cystitis without hematuria Patient Disposition: Home, Self-Care Condition: Stable Instructions: Antibiotic Form, Urinary Tract Infection in Women (ED) Additional Instructions: Your urine shows infection today. Take Augmentin as prescribed until gone. Your urine will be sent of for a culture to identify what type of bacteria is causing your infection. If the culture shows that your medication will not get rid of your infection, you will be notified and a new antibiotic will be called in for you. If your symptoms worsen to include fever, sweats, chills, nausea, vomiting, severe abdominal or back pain, please go to the ER for further evaluation. You may take azo/Uristat for discomfort if needed. Patient Language: [place] Prescriptions: New amoxicillin-pot clavulanate 875-125 mg tablet 1 tablet PO Q12H 7 Days Qty: 14 0RF No Action Wegovy 0.5 mg/0.5 mL Pen Injector 0.5 mg SUBCUT WEEKLY Rx Instructions: administer weeks 5 through 8 of therapy ondansetron 4 mg tablet,disintegrating 4 mg PO Q6H PRN (Reason: nausea and vomiting) 3 Days Qty: 12 0RF Mirena 21 mcg/24 hours (8 yrs) 52 mg intrauterine device 1 device intrauterine ONCE Patient Comments: Placed by PROJECT CONTROL ANALYST Rx Instructions: as a single dose phentermine 37.5 mg tablet 37.5 mg PO DAILY Rx Instructions: must administer 30 minutes before or 1-2 hours after breakfast Follow-up/Referrals: Monet Samson DO [Primary Care Provider] - Time of Disposition: 17:07
== END 2024-11-10 17:12 | disposition home or self-care (01) ==
PROVIDERS: Emergency Provider Nurse Practitioner; PCP Family Medicine
DX: N30.00 Acute cystitis without hematuria (principal); B96.20 Unspecified Escherichia coli [E. coli] as the cause of diseases classified elsewhere
CPT/HCPCS: 81003; 87086; 87186; 99213; G0463

== ENCOUNTER 2025-01-02 10:43 | Emergency (ER) | payer OTHER, SELFPAY ==
[2025-01-02 10:46] VITALS: BP 125/90; PULSE 86; RESP 16; TEMP 36.6; O2SAT 99
--- NOTE | 2025-01-02 10:51 | ED.URI ---
HPI - URI/Sore Throat General Chief Complaint: Upper Respiratory Infection Stated Complaint: Flu Symptoms Time Seen by Provider: 01/02/25 11:07 Source: patient and RN notes reviewed Mode of arrival: ambulatory Limitations: no limitations History of Present Illness HPI Narrative: 39-year-old female presents with concern for body aches, sore throat that started this morning. Reports exposure to COVID. MD elicited complaint: sore throat and other (Body aches) Related Data Home Medications ?Medication ?Instructions ?Recorded ?Confirmed ?Last Taken ?Type levonorgestrel (Mirena) 1 device intrauterine ONCE 07/13/23 01/02/25 Unknown History semaglutide (weight loss) 2.4 2.4 mg subcut WEEKLY 12/19/24 01/02/25 Unknown History mg/0.75 mL subcutaneous pen injector Allergies Allergy/AdvReac Type Severity Reaction Status Date / Time No Known Allergies Allergy Unknown Verified 01/02/25 10:47 Review of Systems Review of Systems: CONSTITUTIONAL: Denies malaise, chills, sweats, or fever. EYES: Denies visual changes, redness, or discharge. ENT: Denies rhinorrhea, congestion, sinus pain, otalgia. Reports sore throat. CARDIOVASCULAR: Denies chest pain, palpitations, or edema. RESPIRATORY: Denies cough. Denies dyspnea. GASTROINTESTINAL: Denies abdominal pain, nausea, vomiting, diarrhea SKIN: Denies rash or itching. MUSCULOSKELETAL: Reports myalgia. NEUROLOGIC: Denies headache. All systems reviewed & are unremarkable except as noted in HPI and below PMFSH Past Medical History Medical History Sinusitis, acute ADHD Anxiety Depression Left scapula fracture Right arm fracture Right hand fracture Left hand fracture Foot fracture, right Migraine Surgical History Surgical History Hx laparoscopic cholecystectomy Minal Li MD 12/17/23 H/O wisdom tooth extraction No significant past surgical history Family History Family History Father CAD (coronary artery disease) Grandparent Leukemia CAD (coronary artery disease) Social History Social History Social History: Caffeine-soda Smoking status: Former smoker Tobacco type: cigarettes and e-cigarettes/vaping Smoking end date: 12/12/19 Additional smoking assessment comments: 3-4 cigarettes/day Alcohol intake: former Substance use: former Substance use type: marijuana Last use: 2004 Lack of Transportation: No Lack of Food: Never True Current Housing: I Have Housing Concerned About Future Housing: No Difficulty Paying Gas/Electric Bills: No Difficulty Paying for Meds: No Currently Unemployed: No Education: Trade/Vocational Certificate Difficulty w/ Childcare or Family Care: No Living arrangements: with family Spiritual care concerns: No Comments At time of signature, agree with nursing past medical, surgical, social and family history. There is no relevant family history pertinent to the presenting complaint Exam Narrative: GENERAL: Well-appearing, well-nourished, and in no acute distress. HEAD: Normocephalic EYES: PERRLA, conjunctivae clear ENT: Nares clear. Mucous membranes moist. TM pearly martinez with sharp light reflex bilaterally; no tragal tenderness. Oropharynx not erythematous without lesions. Tonsils not enlarged and without exudate, no drooling, no hoarseness, no trismus, uvula midline. NECK: Supple. No lymphadenopathy CHEST: Clear to auscultation, breath sounds equal. No wheezing, rhonchi, rales, or stridor. No respiratory distress, speaks in full sentences. HEART: Regular rate and rhythm. No murmur heard. SKIN: Warm, dry, no rash. NEURO: Alert and oriented x3. PSYCH: Normal mood and affect Course Course Emergency Course: Patient is aware of diagnosis, understands and agrees to treatment plan. Anticipatory guidance given. Patient agrees to follow-up as directed and is aware of reasons to seek care at the emergency department. Portions of this record may have been created with voice recognition software Level of Care: Express Care Visit Vital Signs Vital signs: Reviewed. MDM - URI/Sore Throat MDM Narrative Medical decision making narrative: Differential diagnosis considered: [place] virus, strep pharyngitis, allergic rhinitis, upper respiratory tract infection, sinusitis, rhinosinusitis, nasopharyngitis. viral pharyngitis, otitis media, otitis externa, pneumonia, bronchitis, viral cough syndrome, viral syndrome, and influenza. Exam findings show no acute concerns or changes; patient is non-toxic appearing and is in no distress. Patient is appropriate for outpatient treatment and follow-up. Lab Data Attestation: I reviewed the patient's lab results. Critical Care Time Critical Care Time Critical Care Time: No Discharge Plan Discharge Clinical Impression: Acute viral syndrome Patient Disposition: Home, Self-Care Condition: Stable Instructions: Viral Syndrome (ED) Additional Instructions: Your rapid COVID and flu tests are negative -Take strict precautions to prevent the spread of your virus. Be diligent about covering your cough (even when you are alone) and washing your hands frequently. -You may contagious until you have been symptom and/or fever free for 24 hours without fever reducing medicine -Alternate Ibuprofen and Tylenol for pain and fever relief (per package directions) -Drink plenty of fluid - drink fluid with electrolytes such as Gatorade or other oral re-hydration solution. Avoid caffeine, which can make dehydration worse. -Get plenty of rest to help your body heal. -Use a cool mist humidifier for chest and nasal congestion. -Eat RAW honey or use cough drops to ease throat discomfort -Do not smoke or expose children to secondhand smoke -Wash your hands frequently. -Please follow-up with your primary care doctor in the next 1-2 days if your symptoms do not improve. -If you have any worsening of symptoms or any other concerns please go to the ED immediately. -Please take medications as prescribed and continue taking your home medications as usual. Patient Language: Tamazight Prescriptions: No Action Mirena 21 mcg/24 hours (8 yrs) 52 mg intrauterine device 1 device intrauterine ONCE Patient Comments: Placed by [employer] Rx Instructions: as a single dose semaglutide (weight loss) 2.4 mg/0.75 mL pen injector 2.4 mg subcut WEEKLY rizatriptan 5 mg tablet See Rx Instructions PO .COMPLEX Qty: 14 0RF Rx Instructions: take 1 tablet at onset of headache; if no relief, may repeat 1 tablet after at least 2 hrs PO Follow-up/Referrals: PHYSICIAN,SOIL AND PLANT SCIENTIST [Primary Care Provider] - Stand Alone Forms: Work/School Release IP Time of Disposition: 11:12
[2025-01-02 11:11] LABS: EDCOVIDSCREEN Negative (Negative)
[2025-01-02 11:12] LABS: EDINFLUASCREEN Negative (Negative); EDINFLUBSCREEN Negative (Negative)
== END 2025-01-02 11:16 | disposition home or self-care (01) ==
PROVIDERS: Emergency Provider Nurse Practitioner
DX: B34.9 Viral infection, unspecified (principal); Z20.822 Contact with and (suspected) exposure to COVID-19
CPT/HCPCS: 87426; 87804; 99213; G0463

== ENCOUNTER 2025-02-10 11:04 | Outpatient (CLI) | payer OTHER, SELFPAY ==
--- NOTE | ~2025-02-10 | MMUS_ITS ---
EXAMINATION: MM diagnostic tapna BI w sacha, US breast LT complete HISTORY: Palpable left breast abnormality. TECHNIQUE: Additional 3-D tomosynthesis images of the breasts were performed and synthetic 2-D images were generated. CAD analysis was submitted and interpreted. High resolution breast ultrasound was pe rformed. COMPARISON: Left breast ultrasound dated 06/03/2011 BREAST PARENCHYMAL COMPOSITION: Not dense: There are scattered areas of fibroglandular density. FINDINGS: MAMMOGRAPHIC FINDINGS: There are no suspicious masses, calcifications or architectural distortion in either breast to sugges t malignancy. ULTRASOUND: Complete US of all 4 quadrants of the left breast/s and retroareolar region was reviewed. Normal hete rogeneous echotexture without focal mass. There are normal left axillary lymph nodes in the area of p alpable concern. IMPRESSION: 1. No evidence for malignancy in either breast. 2. Routine yearly screening mammogram and regular clinical breast examination are recommended. BI-RADS Category 2: Benign finding(s). Reviewed, dictated and finalized at location A. IMPRESSION: 1. No evidence for malignancy in either breast. 2. Routine yearly screening mammogram and regular clinical breast examination a re recommended. BI-RADS Category 2: Benign finding(s).
--- OUTSIDE RECORDS SUMMARY | 2025-02-10 11:25 | XMS_ITS ---
Care Plan - [facility] Created on: February 10, 2025 ANGELA MORIN : 1985 Sex: Female Author Organization [facility] Address [address] [place] [address] Phone Care Team Providers Care Car Changer Name Role Phone Unavailable Unavailable Unavailable
--- OUTSIDE RECORDS SUMMARY | 2025-02-10 11:25 | XMS_ITS | Encounter Summary ---
Author Organization [facility] Address [address] [place] [address] Phone Care Team Providers Care Manager Private Name Role Phone Unavailable Primary Care Provider Unavailabl e Encounter Details Date Type Department Care Team (Late st Contact Info) Description 02/03/2024 Lab Requisition [facility] [address] [place] [address] Josh Bedolla, PAC [address] [place] [address] Encounter for pre-employment examination Social History Tobacco Use Types Packs/Day Years Used Date Smoking Tobacco: Never Assessed Comments Unknown Sex and Gender Information Value Date Recorded Sex Assigned at Female 02/03/2024 2:36 PM CDT Legal Sex Female 2:35 PM CDT Gender Identity Not on file Sexual Orientation Not on file documented as of this encounter Plan of Treatment Not on file documented as of this encounter Procedures Procedure Name Priority Date/Time Associated Diagnosis Comments QUANTIFERON-TB GOLD PLUS Routine 02/03/2024 12:00 PM CDT Encounter for pre-employment examination documented in this encounter Results * QUANTIFERON-TB GOLD PLUS (02/03/2024 12:00 PM CDT) NIL CONTROL 0.40 <8.01 IU/mL 02/05/2024 9:43 AM CDT [facility] TB ANTIGEN 1 0.00 <0.35 IU/mL 02/05/2024 9:43 AM CDT [facility] TB ANTIGEN 2 0.00 <0.35 IU/mL 02/05/2024 9:43 AM CDT [facility] MITOGEN CONTROL 9.60 >0.49 IU/mL 02/05/20 9:43 AM CDT [facility] INTEPRETATION TB NEGATIVE NEGATIVE, NEGATIVE (TB antigen response less than 25% of internal negative control value) 02/05/2024 9:43 AM CDT [facility] Comment:No immune response t o Mycobacterium tuberculosis antigens was noted. M. tuberculosis infection unlikely. Blood No Phlebotomy Charged / Unknown 02/03/2024 12:00 PM CDT 02/03/2024 3:38 PM CDT Narrative [facility] - 02/05/2024 9:43 AM CDT A POSITIVE QUANTIFERON-TB GOLD PLUS RESULT SHOULD NOT BE THE SOLE OR DEFINITIVE BASIS FOR DETERMINING INFECTION WITH M.TUBERCULOSIS. Diagnosing or excluding tuberculosis disease, and assessing the probability of LTBI, requires a combination of epidemiological, historical, medical and diagnostic findings (e.g., acid fast bacilli (AFB) smear and culture, chest xray) that should be taken into account when interpreting QFT-Plus results. Furthermore, the magnitude of the measured gamma interferon level cannot be correlated to stage or degree of infection, level of immune responsiveness, or likelihood for progression to active disease. The Nil control adjusts for background (e.g., elevated levels of circulating gamma interferon or presence of heterophile antibodies). The Mitogen control serves as an internal positive control and verifies each specimen tested can produce a gamma interferon response. Low mitogen may occur with insufficient lymphocytes, reduced lymphocyte activity due to improper specimen handling, filling/mixing of the mitogen tube, or inability of the patient's lymphocytes to generate gamma interferon. Infection with other Mycobacteria, including M. kansasii, M. szulgai, and M. marinum, may cause false positive results. A negative QuantiFERON-TB Gold Plus result does not preclude the possibility of M. tuberculosis infection or tuberculosis disease: false negative results can be due to incorrect blood sample collection/ improper handling of the specimen, stage of infection (e.g., specimen obtained prior to the development of cellular immune response), co-morbid conditions which affect immune function, or other individual immunological factors. The minimum number of lymphocytes required for a reliable test has not been established and may also be variable. Diagnostic testing for Mycobacterium tuberculosis using Interferon Gamma Release Assays should follow applicable published guidelines, including when testing in populations such as children, women, and HIV-infected or otherwise immunocompromised individuals. https://www.cdc.gov/tb/publications/guidelines/testing.htm us Josh Bedolla PAC IMMUNOLOGY ORDERABLES Final Result [facility] [address] [place] [address], documented in this encounter Visit Diagnoses Diagnosis Encounter for pre-employment examination Health examination of defined subpopulation documented in this encounter
--- OUTSIDE RECORDS SUMMARY | 2025-02-10 11:25 | XMS_ITS ---
Author Organization [facility] Address [address] [place] [address] Phone Care Team Providers Care Beauty Specialist Name Role Phone Unavailable Unavailable Unavailable Plan of Treatment No Plan of Treatment Recorded Assessments Includes: Assessments for all patient encounters No Assessments Recorded Medical Equipment - Implanted Devices Includes: Current and historical Devices No Medical Equipment Recorded Medications Administered Includes: Administered Medications in patient's chart No Administered Medications Recorded Results Includes: Results from 02/11/2024 through 02/10/2025 No Results Recorded For Specified Dates History of Present Illness History of Present Illness not supported for this document type No History of Present Illness Recorded Social History No Social History Recorded - Smoking Status Unknown Medical History Includes: Medical History in patient's chart No Medical History Recorded Family History Includes: Family History in patient's chart No Family History Recorded Review of Systems Review of Systems not supported for this document type No Review of Systems Recorded Mental Status No Mental Status Recorded Functional Status No Functional Status Recorded Physical Exam Physical Exam not supported for this document type No Physical Exam Recorded Clinical Notes Includes: Signed Clinical Notes starting from 11/07/2022 No Clinical Notes Recorded
--- OUTSIDE RECORDS SUMMARY | 2025-02-10 11:25 | XMS_ITS | Clinical Summary ---
Author Organization [facility] Address [address] [place] [address] Phone Care Team Providers Care Balloon Maker Name Role Phone Unavailable Unavailable Unavailable Reason for Visit and Chief Complaint GENERAL OFFICE VISIT Plan of Treatment No Plan of Treatment Recorded Assessments Includes: Assessments from this encounter No Assessments Recorded Medical Equipment - Implanted Devices Includes: Current Devices No Medical Equipment Recorded Medications Administered Includes: Administered Medications from this encounter No Administered Medications Recorded Results Includes: Results discussed during this encounter No Results Recorded For Specified Dates History of Present Illness Includes: History of Present Illness from this encounter No History of Present Illness Recorded Social History No Social History Recorded - Smoking Status Unknown Medical History Includes: Medical History addressed during this encounter No Medical History Recorded Family History Includes: Family History addressed during this encounter No Family History Recorded Review of Systems Includes: Review of Systems from this encounter No Review of Systems Recorded Mental Status Includes: Mental Status from this encounter No Mental Status Recorded Functional Status Includes: Functional Status from this encounter No Functional Status Recorded Physical Exam Includes: Physical Exam from this encounter No Physical Exam Recorded Encounters Encounter Provider Location Date Check-In Time Check- Out Time Diagnosis GENERAL OFFICE VISIT PRASAD AYALA-PSYCHIA SOHEILA 1 11:00AM 12:50PM Clinical Notes Includes: Clinical Notes from this encounter No Clinical Notes Recorded
--- OUTSIDE RECORDS SUMMARY | 2025-02-10 11:25 | XMS_ITS | Clinical Summary ---
Author Organization [facility] Address [address] [place] [address] Phone Care Team Providers Care Junior Brand Manager Name Role Phone Unavailable Unavailable Unavailable Reason [...] Time Diagnosis GENERAL OFFICE VISIT PRASAD AYALA-PSYCHIA TRY 1 11:27AM 12:46PM Clinical Notes Includes: Clinical Notes from this encounter No Clinical Notes Recorded
--- OUTSIDE RECORDS SUMMARY | 2025-02-10 11:25 | XMS_ITS | Clinical Summary ---
Author Organization [facility] Address [address] [place] [phone] Phone Care Team Providers Care Ham Doctor Name Role Phone Unavailable Primary Care Provider Unavailabl e Social History Tobacco Use Types Packs/Day Years Used Date Smoking Tobacco: Never Assessed Comments Unknown Sex and Gender Information Value Date Recorded Sex Assigned at Female 02/03/2024 2:36 PM CDT Legal Sex Female 2:35 PM CDT Gender Identity Not on file Sexual Orientation Not on file Plan of Treatment Health Maintenance Due Date Last Done Comments Hepatitis C Virus (HCV) Screening 1985 Hepatitis B Immunization (1 of 3 - 19+ 3-dose series) 2005 Pap Smear 2007 Cervical Cancer Screening (CCS) 2016 HPV/Cotest 2016 Influenza Immunization (#1) 2024 08/14/2021, 1 SARS-COV-2 Immunization ( season) 2024 08/29/2023, 08/14/2021, 01/06/2021, Additional history exists Respiratory Syncytial Virus (RSV) Immunization (Adult) (1 - 1-dose 75+ series) 2061 TdaP Immunization Completed 06/02/2011 Meningococcal Immunization (ACWY) Aged Out No longer eligible based on patient's age to complete this topic Pneumococcal Immunization Combined Aged Out No longer eligible based on patient's age to complete this topic Rotavirus Immunization Aged Out No lo nger eligible based on patient's age to complete this topic
--- OUTSIDE RECORDS SUMMARY | 2025-02-10 11:25 | XMS_ITS | Clinical Summary ---
Author Organization [facility] Address [address] [place] [address] Phone Care Team Providers Care Program Management Analyst Name Role Phone Unavailable Unavailable Unavailable Reason [...] GENERAL OFFICE VISIT PRASAD AYALA-PSYCHIA TRY 1 10:35AM 11:02AM Clinical Notes Includes: Clinical Notes from this encounter No Clinical Notes Recorded
--- OUTSIDE RECORDS SUMMARY | 2025-02-10 11:25 | XMS_ITS | Clinical Summary ---
Author Organization [email or web address] Address [address] [place] [address] Care Team Providers Care Software Verification Engineer Name Role Phone Unavailable Primary Care Provider Unavailabl e Source Comments [email or web address],non-owned Affiliates and Associated Physician Practices is amultiple site organization consisting of ambulatory clinics and hospital sitesin [place], [place], [place] and [place]. This disclosure is being madepursuant to the Care Everywhere program and may not contain all information available regarding this patient. Last updated [email or web address] Allergies No known active allergies Medications * Be aware that medications may not be up to date on this document. Alwaysverify current medications with the patient. 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 SEALER Gender Identity Not on file Sexual Orientation Not on file Last Filed Vital Signs Vital Sign Reading Time Taken Comments Blood Pressure 118/74 12/01/2017 5:28 PM BAG SEALER Pulse 92 12/01/2017 5:28 PM BAG SEALER Temperature 37.1 C (98.7 F) 12/01/2017 5:28 PM BAG SEALER Respiratory Rate 16 12/01/2017 5:28 PM BAG SEALER Oxygen Saturation 96% 12/01/2017 5:28 PM BAG SEALER Inhaled Oxygen Concentration - - Weight 129.3 kg (285 lb) 12/01/2017 5:28 PM BAG SEALER Height 170.2 cm (5' 7 ) 12/01/2017 5:28 PM BAG SEALER Body Mass Index 44.64 12/01/2017 5:28 PM BAG SEALER Plan of Treatment Health Maintenance Due Date Last Done Comments PAP SMEAR 1986 HIV SCREENING 2001 HEPATITIS C SCREENING 11/11/2004 DTAP/TDAP/TD VACCINES (1 - Tdap) 2005 HEPATITIS B VACCINE (1 of 3 - 19+ 3-dose series) 2005 COVID-19 VACCINE (1 - 2023-2 5 season) 2024 DEPRESSION SCREENING 10/19/2024 INFLUENZA VACCINE (Season Ended) 2025 ZOSTER VACCINE (1 of 2) 2036 HIB VACCINE Aged Out No longer eligi ble based on patient's age to complete this topic HPV VACCINE Aged Out No longer eligi ble based on patient's age to complete this topic MENINGOCOCCAL (Group B) VACC INE SHARED DECISION-MAKING Aged Out No longer eligibl e based on patient's age to complete this topic MENINGOCOCCAL GROUPS A/C/Y/W VACCINE Aged Out No longer eligible b ased on patient's age to complete this topic PNEUMOCOCCAL VACCINE Aged Out No long er eligible based on patient's age to complete this topic Insurance HEALTH PLAN SELF PAY NO INSURANCE Member Subscriber Plan / Payer (Ef fective for All Dates) Name:Marlo Shieldst Member ID:Not on file Relation to Subscriber:Not on file Name:LAVERN SHIELDS Subscriber ID:Not on file Address: [address] [place] [address] Payer ID:Not on file Group ID:Not on file Type:Self Pay Address: [place] SELF PAY NO INSURANCE Member Subscriber Plan / Payer (Ef fective for All Dates) Name:Marlo Shieldst Member ID:Not on file Relation to Subscriber:Not on file Name:LAVERN SHIELDS Subscriber ID:Not on file Address: [address] [place] [address] Payer ID:Not on file Group ID:Not on file Type:Self Pay Address: [place] SELF PAY NO INSURANCE Member Subscriber Plan / Payer (Ef fective for All Dates) Name:Lavern Shields Member ID:Not on file Relation to Subscriber:Not on file Name:LAVERN SHIELDS Subscriber ID:Not on file Address: [address] [place] [address] Payer ID:Not on file Group ID:Not on file Type:Self Pay Address: [place], [place] [employer] [employer] SELF PAY NO INSURANCE Member Subscriber Plan / Payer (Ef fective for All Dates) Name:Marlo Shieldst Member ID:Not on file Relation to Subscriber:Not on file Name:LAVERN SHIELDS Subscriber ID:Not on file Address: [facility] [address] [place] [address] Payer ID:Not on file Group ID:Not on file Type:Self Pay Address: [place] SELF PAY NO INSURANCE Member Subscriber Plan / Payer (Ef fective for All Dates) Name:Marlo Shieldst Member ID:Not on file Relation to Subscriber:Not on file Name:LAVERN SHIELDS Subscriber ID:Not on file Address: [facility] [address] [place] [address] Payer ID:Not on file Group ID:Not on file Type:Self Pay Address: [place] [employer] SELF PAY NO INSURANCE Member Subscriber Plan / Payer (Ef fective for All Dates) Name:Lavern Shields Member ID:Not on file Relation to Subscriber:Not on file Name:LAVERN SHIELDS Subscriber ID:Not on file Address: [address] [place] [phone] Payer ID:Not on file Group ID:Not on file Type:Self Pay Address: [place], [place]
== END 2025-02-10 11:05 | disposition home or self-care (01) ==
LOC: ANHIMG 11:05
PROVIDERS: PCP Family Medicine; Visit Provider Nurse Practitioner
DX: N63.20 Unspecified lump in the left breast, unspecified quadrant (principal)
CPT/HCPCS: 76641; 77062; 77066; G0279

== ENCOUNTER 2025-02-28 14:15 | Emergency (ER) | payer OTHER, SELFPAY ==
[2025-02-28 14:28] VITALS: BP 121/78; PULSE 92; RESP 16; TEMP 36.4; O2SAT 99
--- NOTE | 2025-02-28 16:17 | ED_ITS ---
HPI - Eye Problem General Chief complaint: Eye Problems Stated complaint: [place] [facility] Time Seen by Provider: 02/28/25 14:45 Source: patient and RN notes reviewed Mode of arrival: ambulatory Limitations: no limitations History of Present Illness HPI Narrative: 39-year-old female presents to the [facility] complaining of bilateral eye discharge and right eyelid swelling since yesterday. Patient denies scratching injury to her eye. He reports he dropped her eyes after touching her cat. Patient denies any pain in her eye, pain with movement of her eye, vision changes, or blurry vision. Patient reports discharge is worse in the right and the left. Patient has any fevers, body aches, chills. Related Data Home Medications ?Medication ?Instructions ?Recorded ?Confirmed ?Last Taken ?Type levonorgestrel (Mirena) 1 device intrauterine ONCE 07/13/23 01/25/25 Unknown History semaglutide (weight loss) 2.4 2.4 mg subcut WEEKLY 12/19/24 01/25/25 Unknown History mg/0.75 mL subcutaneous pen injector Allergies Allergy/AdvReac Type Severity Reaction Status Date / Time No Known Allergies Allergy Unknown Verified 02/28/25 14:42 Review of Systems Review of Systems: CONSTITUTIONAL: Denies fever, chills, or sweats. EYES: Denies visual changes, pain with eye movement. Positive for redness, discharge, eyelid swelling. ENT: Denies rhinorrhea, congestion, sore throat, or otalgia. CARDIOVASCULAR: Denies chest pain, palpitations, or edema. RESPIRATORY: Denies cough or dyspnea. GASTROINTESTINAL: Denies abdominal pain, nausea, vomiting, or diarrhea. GENITOURINARY: Denies dysuria or hematuria. SKIN: Denies rash or itching. MUSCULOSKELETAL: Denies back pain, joint pain, or myalgia. NEUROLOGIC: Denies headache, numbness, or weakness. PSYCHIATRIC: Denies anxiety or depression. All other systems reviewed are negative, except as documented in HPI. COUNTS INCLUDE 234 BEDS AT THE [facility] Past Medical History Medical History Sinusitis, acute ADHD Anxiety Depression Left scapula fracture Right arm fracture Right hand fracture Left hand fracture Foot fracture, right Migraine Surgical History Surgical History Hx laparoscopic cholecystectomy Minal Li MD 12/17/23 H/O wisdom tooth extraction No significant past surgical history Family History Family History Father CAD (coronary artery disease) Grandparent Leukemia CAD (coronary artery disease) Social History Social History Social History: Caffeine-soda Smoking status: Never smoker Tobacco type: cigarettes and e-cigarettes/vaping Smoking end date: 12/12/19 Additional smoking assessment comments: 3-4 cigarettes/day Alcohol intake: former Substance use: former Substance use type: marijuana Last use: 2004 Lack of Transportation: No Lack of Food: Never True Current Housing: I Have Housing Concerned About Future Housing: No Difficulty Paying Gas/Electric Bills: No Difficulty Paying for Meds: No Currently Unemployed: No Education: Trade/Vocational Certificate Difficulty w/ Childcare or Family Care: No Living arrangements: with family Spiritual care concerns: No Comments At the time of my signature, I reviewed and agree with the nursing past medical, surgical, social, and family history. There is no relevant family history pertinent to the patient complaint. Exam Narrative: GENERAL: This is a well-nourished, well-developed adult, in no apparent distress. They are non ill-appearing, nontoxic appearing. HEAD: normocephalic, atraumatic. EYES: Sclera clear/white. Conjunctivae injected bilaterally. Right conjunctiva is worse than left. Exudate present to both eyes. Vision is grossly intact. Extraocular movements intact without tenderness. Right upper and lower eyelids are erythematous. Left upper lower eyelid normal. Pupils PERRLA. EARS: External ears normal, auditory canals clear and without drainage, TMs normal without perforation. Hearing grossly intact. NOSE: External nose normal with no obvious nasal discharge, nasal turbinates without redness, no rhinorrhea. THROAT/MOUTH: Mucous membranes moist, posterior pharynx clear, without erythema or swelling. Uvula midline. Oropharynx is clear without swelling or pain. Trismus. NECK: Neck supple, non-tender without lymphadenopathy, masses or thyromegaly. CARDIOVASCULAR: Regular rate and rhythm without murmurs, gallops, or rubs. RESPIRATORY: Clear to auscultation. Breath sounds equal bilaterally. No wheezes, rales, or rhonchi. SKIN: warm, Dry, intact with no suspicious lesions or rash, good texture and turgor. NEURO: awake, alert, and oriented to person, place and time. There were no obvious focal neurologic abnormalities. EXTREMITIES: No joint tenderness, effusion, or edema noted. BACK: Nontender without deformity. No CVA tenderness. Course Course Emergency Course: Portions of this record may have been created with voice recognition software Level of Care: Express Care Visit Vital Signs Vital signs: Vital Signs Temperature 97.6 F 02/28/25 14:28 Pulse Rate 92 02/28/25 14:28 Respiratory Rate 16 02/28/25 14:28 Blood Pressure 121/78 02/28/25 14:28 Pulse Oximetry 99 02/28/25 14:28 Temperature 97.6 F 02/28/25 14:28 Pulse Rate 92 02/28/25 14:28 Respiratory Rate 16 02/28/25 14:28 Blood Pressure 121/78 02/28/25 14:28 Pulse Oximetry 99 02/28/25 14:28 Reviewed MDM - Eye Problem MDM Narrative Medical decision making narrative: Patient likely has a bacterial conjunctivitis to both eyes. There is also concern patient's developing preseptal cellulitis to the right eye. Patient has no vision changes or pain with eye movement or any pressure to her eye. Will treat empirically with Augmentin. Will prescribe polymyxin eye drops for the conjunctivitis. Discussed physical exam findings. Advised supportive measures and signs/symptoms to go to the ER. Pt is appropriate for outpt treatment and f/u. Differential Diagnosis Differential diagnosis: Likely conjunctivitis, periorbital cellulitis and other (Orbital cellulitis) Critical Care Time Critical Care Time Critical Care Time: No Discharge Plan Discharge Clinical Impression: Preseptal cellulitis of right eye Conjunctivitis Qualifiers: Conjunctivitis type: acute Acute conjunctivitis type: bacterial Laterality: right Qualified Code(s): H10.31 - Unspecified acute conjunctivitis, right eye Patient Disposition: Home Condition: Stable Instructions: Periorbital Cellulitis (ED), Conjunctivitis (ED) Additional Instructions: Your exam today shows Conjunctivitis, You have been given a prescription for eye drops. Use the eye drops as instructed. If you are not better in two (2) days, you need to follow up with an microwave technician. Cellulitis around your eyelid. Please take your antibiotics as directed. Do not rub the eye or put anything else in the eye, this can cause abrasions (scratches) on the eye or lead to vision loss. Also it is important not to touch the tube or tip of drops to the eye, as this can cause further infection. Wash your hands very well before instilling the medication. Handwashing can help prevent the spread of disease. Follow up with PCP in 2-3 days Return to ER if you develop pain in your eye, vision changes, blurry vision, worsening redness or swelling, fevers, symptoms are not getting better in on treatment after 3 days, or any other concerns. Contact [facility] if you need an Rejected Items Clerk Patient Language: [place] Prescriptions: New polymyxin B sulf-trimethoprim 10,000 unit- 1 mg/mL drops 1 drp EACH EYE Q3H 7 Days Qty: 10 0RF Rx Instructions: while awake; do not exceed 6 doses in 24 hours amoxicillin-pot clavulanate 875-125 mg tablet 1 tablet PO Q12H 7 Days Qty: 14 0RF No Action Mirena 21 mcg/24 hours (8 yrs) 52 mg intrauterine device 1 device intrauterine ONCE Patient Comments: Placed by NURSE HEALTHCARE MANAGER Rx Instructions: as a single dose semaglutide (weight loss) 2.4 mg/0.75 mL pen injector 2.4 mg subcut WEEKLY rizatriptan 5 mg tablet See Rx Instructions PO .COMPLEX Qty: 14 0RF Rx Instructions: take 1 tablet at onset of headache; if no relief, may repeat 1 tablet after at least 2 hrs PO Follow-up/Referrals: Monet Samson DO [Primary Care Provider] - Time of Disposition: 14:58
== END 2025-02-28 15:08 | disposition home or self-care (01) ==
PROVIDERS: PCP Family Medicine
DX: L03.213 Periorbital cellulitis (principal); H10.31 Unspecified acute conjunctivitis, right eye; Z87.891 Personal history of nicotine dependence
CPT/HCPCS: 99213; G0463

== ENCOUNTER 2025-03-27 16:07 | Emergency (ER) | payer OTHER, SELFPAY ==
[2025-03-27 16:24] VITALS: BP 114/77; PULSE 70; RESP 16; TEMP 36.8; O2SAT 99
--- NOTE | 2025-03-27 17:04 | ED_ITS ---
HPI - URI/Sore Throat General Chief Complaint: Upper Respiratory Infection Stated Complaint: Ear Pain/Sore Throat Time Seen by Provider: 03/27/25 16:59 Source: patient and RN notes reviewed Mode of arrival: ambulatory Limitations: no limitations History of Present Illness HPI Narrative: Patient presents today with a 2 hour history of right ear pain and right-sided sore throat. Denies any additional symptoms to include cough, congestion, rhinorrhea, fever, difficulty swallowing or breathing. She currently rates her pain 7/10 and has tried no [id number]-ory-[id number] treatment prior to arrival. Reports history of frequent ear infections. Last course of antibiotics was in December Related Data Home Medications ?Medication ?Instructions ?Recorded ?Confirmed ?Last Taken ?Type levonorgestrel (Mirena) 1 device intrauterine ONCE 07/13/23 01/25/25 Unknown History semaglutide (weight loss) 2.4 2.4 mg subcut WEEKLY 12/19/24 01/25/25 Unknown History mg/0.75 mL subcutaneous pen injector Allergies Allergy/AdvReac Type Severity Reaction Status Date / Time No Known Allergies Allergy Unknown Verified 03/27/25 16:25 Review of Systems Review of Systems: CONSTITUTIONAL: Denies body aches, fever, chills, or sweats. EYES: Denies visual changes, redness, or discharge. ENT: Denies rhinorrhea, congestion. + sore throat, right ear pain CARDIOVASCULAR: Denies chest pain, palpitations, or edema. RESPIRATORY: Denies cough or dyspnea. GASTROINTESTINAL: Denies abdominal pain, nausea, vomiting, or diarrhea. GENITOURINARY: Denies dysuria or hematuria. SKIN: Denies rash, itching, or wounds. MUSCULOSKELETAL: Denies back pain, joint pain, or myalgia. NEUROLOGIC: Denies headache, numbness, tingling, or weakness. PSYCH: Denies depression or anxiety. [facility] Past Medical History Medical History Sinusitis, acute ADHD Anxiety Depression Left scapula fracture Right arm fracture Right hand fracture Left hand fracture Foot fracture, right Migraine Surgical History Surgical History Hx laparoscopic cholecystectomy Minal Li MD 12/17/23 H/O wisdom tooth extraction No significant past surgical history Family History Family History Father CAD (coronary artery disease) Grandparent Leukemia CAD (coronary artery disease) Social History Social History Social History: Caffeine-soda Smoking status: Never smoker Tobacco type: cigarettes and e-cigarettes/vaping Smoking end date: 12/12/19 Additional smoking assessment comments: 3-4 cigarettes/day Alcohol intake: former Substance use: former Substance use type: marijuana Last use: 2004 Lack of Transportation: No Lack of Food: Never True Current Housing: I Have Housing Concerned About Future Housing: No Difficulty Paying Gas/Electric Bills: No Difficulty Paying for Meds: No Currently Unemployed: No Education: Trade/Vocational Certificate Difficulty w/ Childcare or Family Care: No Living arrangements: with family Spiritual care concerns: No Comments At time of signature, I have reviewed and agree with nursing past medical, surgical, social and family history unless otherwise noted. Please see nursing chart for further information. There is no relevant family history pertinent to the presenting complaint Exam Narrative: GENERAL: Well-appearing, well-nourished, and in no acute distress. HEAD: Normocephalic, atraumatic. EYES: EOMI. No redness or drainage. Conjunctivae normal. ENT: Mucous membranes pink and moist. Nares clear. No rhinorrhea. Left TM normal. Right TM erythematous and slightly bulging with purulent material. Throat normal. Uvula midline. NECK: Normal AROM. Supple. No lymphadenopathy. CHEST: No respiratory distress. Clear to auscultation. HEART: Regular rate and rhythm. No murmur appreciated. EXTREMITIES: Normal range of motion. No edema. SKIN: Warm, dry, no rash. Capillary refill normal. Normal skin turgor. NEURO: No focal deficits. Alert and oriented x3. Gait steady. PSYCH: Normal affect. No signs of depression or anxiety. Course Course Level of Care: Express Care Visit Vital Signs Vital signs: Vital Signs Temperature 98.3 F 03/27/25 16:24 Pulse Rate 70 03/27/25 16:24 Respiratory Rate 16 03/27/25 16:24 Blood Pressure 114/77 03/27/25 16:24 Pulse Oximetry 99 03/27/25 16:24 Temperature 98.3 F 03/27/25 16:24 Pulse Rate 70 03/27/25 16:24 Respiratory Rate 16 03/27/25 16:24 Blood Pressure 114/77 03/27/25 16:24 Pulse Oximetry 99 03/27/25 16:24 Reviewed MDM - URI/Sore Throat MDM Narrative Medical decision making narrative: Rapid strep negative. Culture pending. Prescription for amoxicillin for otitis media sent to pharmacy. Anticipatory guidance given. Differential Diagnosis Differential diagnosis: Likely upper respiratory infection, otitis media, sinusitis, viral infection, pharyngitis and other (Strep throat) Lab Data Attestation: I reviewed the patient's lab results. Lab results narrative: Rapid strep negative. Critical Care Time Critical Care Time Critical Care Time: No Discharge Plan Discharge Clinical Impression: Acute right otitis media Patient Disposition: Home Condition: Stable Instructions: Antibiotic Form, Ear Infection (ED) Additional Instructions: Your rapid strep test is negative. Please take the amoxicillin for your ear infection. Take Tylenol or ibuprofen for pain if needed. You may try some Sudafed for ear pressure as well. Follow-up with your PCP with any additional concerns. Patient Language: Kosovan Prescriptions: New amoxicillin 875 mg tablet 875 mg PO Q12H 7 Days Qty: 14 0RF No Action polymyxin B sulf-trimethoprim 10,000 unit- 1 mg/mL drops 1 drp EACH EYE Q3H 7 Days Qty: 10 0RF Rx Instructions: while awake; do not exceed 6 doses in 24 hours amoxicillin-pot clavulanate 875-125 mg tablet 1 tablet PO Q12H 7 Days Qty: 14 0RF Mirena 21 mcg/24 hours (8 yrs) 52 mg intrauterine device 1 device intrauterine ONCE Patient Comments: Placed by CIVIL ATTORNEY Rx Instructions: as a single dose semaglutide (weight loss) 2.4 mg/0.75 mL pen injector 2.4 mg subcut WEEKLY rizatriptan 5 mg tablet See Rx Instructions PO .COMPLEX Qty: 14 0RF Rx Instructions: take 1 tablet at onset of headache; if no relief, may repeat 1 tablet after at least 2 hrs PO Follow-up/Referrals: PHYSICIAN,E MAIL SYSTEM ADMINISTRATOR [Primary Care Provider] - Time of Disposition: 17:08
[2025-03-27 17:11] LABS: EDSTREPNEGPOS1 Negative (Negative)
== END 2025-03-27 17:11 | disposition home or self-care (01) ==
PROVIDERS: Emergency Provider Nurse Practitioner
DX: H66.91 Otitis media, unspecified, right ear (principal); Z87.891 Personal history of nicotine dependence
CPT/HCPCS: 87081; 87880; 99213; G0463

== ENCOUNTER 2025-04-30 18:47 | Emergency (ER) | payer OTHER, SELFPAY ==
[2025-04-30 18:53] VITALS: BP 123/96; PULSE 78; RESP 16; TEMP 36.5; O2SAT 100
--- NOTE | 2025-04-30 19:12 | ED.HA ---
HPI - Headache General Chief Complaint: Headache Stated Complaint: HEADACHE/VOMITING/WANTS WORK NOTE Time Seen by Provider: 04/30/25 19:06 Source: patient and RN notes reviewed Mode of arrival: ambulatory Limitations: no limitations History of Present Illness HPI Narrative: Patient presents today complaining of a frontal migraine headache that started at 1:00 a.m. that cause 2 episodes of vomiting this morning, which is normal for her. Due to this headache with subsequent vomiting, patient called into work today and needs a work excuse. Patient does have history of migraines and typically will take Advil dual action. States her headache is a little better this evening then earlier today. She does not currently take a prescription medication for her migraines, but used to take rizatriptan. She currently rates her headache 6/10. Her nausea has resolved. Denies any additional symptoms to include dizziness, lightheadedness, vision changes, photophobia, phonophobia. She has an appointment with her PCP tomorrow and may speak to her about starting on a prescription abortive medication. Related Data Home Medications ?Medication ?Instructions ?Recorded ?Confirmed ?Last Taken ?Type levonorgestrel (Mirena) 1 device intrauterine ONCE 07/13/23 01/25/25 Unknown History semaglutide (weight loss) 2.4 2.4 mg subcut WEEKLY 12/19/24 01/25/25 Unknown History mg/0.75 mL subcutaneous pen injector Allergies Allergy/AdvReac Type Severity Reaction Status Date / Time No Known Allergies Allergy Unknown Verified 04/30/25 18:49 [facility] Past Medical History Medical History Sinusitis, acute ADHD Anxiety Depression Left scapula fracture Right arm fracture Right hand fracture Left hand fracture Foot fracture, right Migraine Surgical History Surgical History Hx laparoscopic cholecystectomy Minal Li MD 12/17/23 H/O wisdom tooth extraction No significant past surgical history Family History Family History Father CAD (coronary artery disease) Grandparent Leukemia CAD (coronary artery disease) Social History Social History Social History: Caffeine-soda Smoking status: Never smoker Tobacco type: cigarettes and e-cigarettes/vaping Smoking end date: 12/12/19 Additional smoking assessment comments: 3-4 cigarettes/day Alcohol intake: former Substance use: former Substance use type: marijuana Last use: 2004 Lack of Transportation: No Lack of Food: Never True Current Housing: I Have Housing Concerned About Future Housing: No Difficulty Paying Gas/Electric Bills: No Difficulty Paying for Meds: No Currently Unemployed: No Education: Trade/Vocational Certificate Difficulty w/ Childcare or Family Care: No Living arrangements: with family Spiritual care concerns: No Comments At time of signature, I have reviewed and agree with nursing past medical, surgical, social and family history unless otherwise noted. Please see nursing chart for further information. There is no relevant family history pertinent to the presenting complaint Exam Narrative: GENERAL: Well-appearing, well-nourished, and in no acute distress. HEAD: Normocephalic, atraumatic. EYES: EOMI. PERRL. No redness or drainage. Conjunctivae normal. ENT: Mucous membranes pink and moist. NECK: Normal AROM. CHEST: No respiratory distress. Clear to auscultation. HEART: Regular rate and rhythm. No murmur appreciated. EXTREMITIES: Normal range of motion. No edema. SKIN: Warm, dry, no rash. Capillary refill normal. Normal skin turgor. NEURO: No focal deficits. Alert and oriented x3. Gait steady. PSYCH: Normal affect. No signs of depression or anxiety. Course Course Level of Care: Express Care Visit Vital Signs Vital signs: Vital Signs Temperature 97.7 F 04/30/25 18:53 Pulse Rate 78 04/30/25 18:53 Respiratory Rate 16 04/30/25 18:53 Blood Pressure 123/96 H 04/30/25 18:53 Pulse Oximetry 100 04/30/25 18:53 Temperature 97.7 F 04/30/25 18:53 Pulse Rate 78 04/30/25 18:53 Respiratory Rate 16 04/30/25 18:53 Blood Pressure 123/96 H 04/30/25 18:53 Pulse Oximetry 100 04/30/25 18:53 Reviewed MDM - Headache MDM Narrative Medical decision making narrative: 39-year-old female patient with history of migraines presents today with a migraine headache requesting a work excuse. Patient had 2 episodes of vomiting early this morning and has no residual nausea. She took some [id number] Advil for her migraine and states that has provided some relief but currently rates her pain 6/10. She is not currently on a prescription for her migraines. Denies any additional symptoms at this time. Vital signs stable. Patient has an appointment tomorrow with her PCP. Differential Diagnosis Differential diagnosis: Likely migraine and other (Nausea and vomiting, dehydration, work excuse) Critical Care Time Critical Care Time Critical Care Time: No Discharge Plan Discharge Clinical Impression: Migraine Patient Disposition: Home Condition: Stable Instructions: Migraine Headache (ED) Additional Instructions: Rest and stay hydrated. Continue Advil if needed. Follow-up with your PCP with any additional concerns. Your blood pressure was elevated above 120/80 today at Urgent Care. This puts you above the threshold for follow up. Please schedule a followup visit with your personal physician as soon as possible, for further evaluation and treatment. Even blood pressure exceeding 120/80 may indicate pre-hypertension. 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
== END 2025-04-30 19:15 | disposition home or self-care (01) ==
PROVIDERS: Emergency Provider Nurse Practitioner; PCP Family Medicine
DX: G43.909 Migraine, unspecified, not intractable, without status migrainosus (principal)
CPT/HCPCS: 99213; G0463

== ENCOUNTER 2025-06-16 11:35 | Emergency (ER) | payer OTHER, SELFPAY ==
--- NOTE | ~2025-06-16 | XR_ITS ---
EXAMINATION: XR hand RT min 3V DATE: 06/16/2025 11:59 INDICATION: Tender first and second metacarpals. Chest in car door TECHNIQUE: 3 images of the right hand were obtained. COMPARISON: None. FINDINGS: Bone mineralization is within normal limits. No fracture. No dislocation. Soft tissue swelling about the second and third metacarpals. IMPRESSION: 1. No fracture identified. If symptoms persist or worsen, consider a short-term follow-up study or additional imaging for further assessment. Reviewed, dictated and finalized at location Q. IMPRESSION: 1. No fracture identified. If symptoms persist or worsen, consider a short-term follow-up study or additio nal imaging for further assessment.
[2025-06-16 11:43] VITALS: BP 114/86; PULSE 82; RESP 19; TEMP 37.1; O2SAT 99
--- NOTE | 2025-06-16 11:47 | ED.UPPEXIN ---
HPI - Extremity Injury (Upper) General Chief Complaint: Extremity Injury, Upper Stated Complaint: INJURED R HAND Time Seen by Provider: 06/16/25 11:48 Source: patient Mode of arrival: ambulatory Limitations: no limitations History of Present Illness HPI narrative: 39 yo F presents with pain to R hand, R thumb nail after slamming hand in cardoor around 7am today. ROM decreased due to pain. 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 Concerned for fracture. All systems reviewed and negative except as noted above. Related Data Home Medications ?Medication ?Instructions ?Recorded ?Confirmed ?Last Taken ?Type levonorgestrel (Mirena) 1 device intrauterine ONCE 07/13/23 05/02/25 Unknown History semaglutide 1.7 mg/0.22 mL mg subcut 05/02/25 05/02/25 Unknown History subcutaneous syringe Allergies Allergy/AdvReac Type Severity Reaction Status Date / Time No Known Allergies Allergy Unknown Verified 06/16/25 11:38 [facility] Past Medical History Medical History Sinusitis, acute ADHD Anxiety Depression Left scapula fracture Right arm fracture Right hand fracture Left hand fracture Foot fracture, right Migraine Surgical History Surgical History Hx laparoscopic cholecystectomy Minal Li MD 12/17/23 H/O wisdom tooth extraction No significant past surgical history Family History Family History Father CAD (coronary artery disease) Grandparent Leukemia CAD (coronary artery disease) Social History Social History Social History: Caffeine-soda Smoking status: Never smoker Tobacco type: cigarettes and e-cigarettes/vaping Smoking end date: 12/12/19 Additional smoking assessment comments: 3-4 cigarettes/day Alcohol intake: former Substance use: former Substance use type: marijuana Last use: 2004 Lack of Transportation: No Lack of Food: Never True Current Housing: I Have Housing Concerned About Future Housing: No Difficulty Paying Gas/Electric Bills: No Difficulty Paying for Meds: No Currently Unemployed: No Education: Trade/Vocational Certificate Difficulty w/ Childcare or Family Care: No Living arrangements: with family Spiritual care concerns: No Comments At time of signature, agree with nursing past medical, surgical, social and family history. There is no relevant family history pertinent to the presenting complaint. Exam Narrative: GENERAL: This is a well-nourished, well-developed patient, in no apparent distress. HEAD: normocephalic, atraumatic. EYES: PERRL. Sclera clear/white. Vision is grossly intact. EARS: External ears normal NOSE: External nose normal NECK: Neck supple, non-tender without lymphadenopathy, masses or thyromegaly. CARDIOVASCULAR: Regular rate and rhythm without murmurs, gallops, or rubs. RESPIRATORY: Clear to auscultation. Breath sounds equal bilaterally. No wheezes, rales, or rhonchi. SKIN: warm, Dry, intact with no suspicious lesions or rash, good texture and turgor. NEURO: awake, alert, and oriented to person, place and time. There were no obvious focal neurologic abnormalities. EXTREMITIES: tender to R 1st and 2nd metacarpals. no swelling or bruising noted to soft tissues. subungual hematoma to R thumb. ROM and distal NV intact. Course Course Level of Care: Express Care Visit Vital Signs Vital signs: Vital Signs Temperature 37.1 C 06/16/25 11:43 Pulse Rate 82 06/16/25 11:43 Respiratory Rate 19 06/16/25 11:43 Blood Pressure 114/86 06/16/25 11:43 Pulse Oximetry 99 06/16/25 11:43 Oxygen Delivery Room Air 06/16/25 11:43 Temperature 37.1 C 06/16/25 11:43 Pulse Rate 82 06/16/25 11:43 Respiratory Rate 19 06/16/25 11:43 Blood Pressure 114/86 06/16/25 11:43 Pulse Oximetry 99 06/16/25 11:43 Oxygen Delivery Room Air 06/16/25 11:43 Reviewed MDM - Extremity Injury (Upper) MDM Narrative Medical decision making narrative: X-ray of right hand negative for fracture. Discussed results with patient. We do not have coronary pen at [facility] to drain the subungual hematoma to right thumb. Patient was offered to transfer to a another [facility] for draining or offered to have her wait here while we grabbed a cautery pen from another facility. Patient did not want to wait. Stated that she needed to let her dog out to use the bathroom. Will return later if she feels that it needs drained. Differential Diagnosis Differential diagnosis: Likely fracture of hand and other (Hand contusion) Imaging Data My impression: Agree with radiologist Radiologist's impression: EXAMINATION: XR hand RT min 3V DATE: 06/16/2025 11:59 INDICATION: Tender first and second metacarpals. Chest in car door TECHNIQUE: 3 images of the right hand were obtained. COMPARISON: None. FINDINGS: Bone mineralization is within normal limits. No fracture. No dislocation. Soft tissue swelling about the second and third metacarpals. IMPRESSION: 1. No fracture identified. If symptoms persist or worsen, consider a short-term follow-up study or additional imaging for further assessment. Discharge Plan Discharge Clinical Impression: Contusion of hand, right, Hematoma, subungual, thumb, right Patient Disposition: Home Condition: Stable Instructions: Subungual Hematoma (ED), Hematoma (ED) Additional Instructions: The x-ray of your right hand was negative for fracture. Take ibuprofen or Tylenol every 6-8 hours as needed for pain. Apply ice as needed for pain. Follow-up with your primary care physician if pain is not improving. 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
--- NOTE | 2025-06-16 12:30 | PC.NURSE ---
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
== END 2025-06-16 12:25 | disposition home or self-care (01) ==
PROVIDERS: Emergency Provider Nurse Practitioner Family; PCP Family Medicine
DX: S60.111A Contusion of right thumb with damage to nail, initial encounter (principal); S60.221A Contusion of right hand, initial encounter; W23.0XXA Caught, crushed, jammed, or pinched between moving objects, initial encounter
CPT/HCPCS: 73130; 99213; G0463

== ENCOUNTER 2025-06-16 13:41 | Emergency (ER) | payer OTHER, SELFPAY ==
--- OUTSIDE RECORDS SUMMARY | 2025-06-16 13:45 | XMS_ITS | Clinical Summary ---
Author Organization [facility] Address [address] [place] [address] Care Team Providers Care Sales Operations Analyst Name Role Phone Unavailable Primary Care Provider Unavailabl e Source Comments [facility],non-owned Affiliates and Associated Physician Practices is amultiple site organization consisting of ambulatory clinics and hospital sitesin [place], [place], [place] and [place]. This disclosure is being madepursuant to the Care Everywhere program and may not contain all information available regarding this patient. Last updated 18.[facility] Allergies No known active allergies Medications * [...] on file Legal Sex Female 9:25 AM [employer] Gender Identity Not on file Sexual Orientation Not on file Last Filed Vital Signs Vital Sign Reading Time Taken Comments Blood Pressure 118/74 12/01/2017 5:28 PM [employer] Pulse 92 12/01/2017 5:28 PM [employer] Temperature 37.1 C (98.7 F) 12/01/2017 5:28 PM [employer] Respiratory Rate 16 12/01/2017 5:28 PM [employer] Oxygen Saturation 96% 12/01/2017 5:28 PM [employer] Inhaled Oxygen Concentration - - Weight 129.3 kg (285 lb) 12/01/2017 5:28 PM [employer] Height 170.2 cm (5' 7) 12/01/2017 5:28 PM [employer] Body Mass Index 44.64 12/01/2017 5:28 PM [employer] Plan of Treatment Health Maintenance Due Date Last Done Comments HIV SCREENING 2001 HEPATITIS C SCREENING 11/11/2004 DTAP/TDAP/TD VACCINES (1 - Tdap) 2005 HEPATITIS B VACCINE (1 of 3 - 19+ 3-dose series) 2005 PAP SMEAR 2007 HPV VACCINE (1 - 3-dose SCDM series) 2013 COVID-19 VACCINE ( - 2023-2 5 season) 2024 DEPRESSION SCREENING 10/19/2024 INFLUENZA VACCINE (#1) 2025 ZOSTER VACCINE (1 of 2) 2036 [...] patient's age to complete this topic [place] [place] [address] HEALTH PLAN SELF PAY NO INSURANCE Member Subscriber Plan / Payer (Ef fective for All Dates) Name:Alyson, Lavern Member ID:Not on file Relation to Subscriber:Not on file Name:LAVERN SHIELDS Subscriber ID:Not on file Address: [address] [place] [address] Payer ID:Not on file Group ID:Not on file Type:Self Pay Address: [place] SELF PAY NO INSURANCE Member Subscriber Plan / Payer (Ef fective for All Dates) Name:Marlo Shieldst Member ID:Not on file Relation to Subscriber:Not on file Name:LAVERN SHIELDS Subscriber ID:Not on file Address: [address] [place] [address] Payer ID:Not on file Group ID:Not on file Type:Self Pay Address: [place] SELF PAY NO INSURANCE Member Subscriber Plan / Payer (Ef fective for All Dates) Name:Lavern Shields Member ID:Not on file Relation to Subscriber:Not on file Name:LAVERN SHIELDS Subscriber ID:Not on file Address: [address] [place] [address] Payer ID:Not on file Group ID:Not on file Type:Self Pay Address: [place] [employer] SELF PAY NO INSURANCE Member Subscriber Plan / Payer (Ef fective for All Dates) Name:Lavern Shields Member ID:Not on file Relation to Subscriber:Not on file Name:LAVERN SHIELDS Subscriber ID:Not on file Address: [address] [place] [address] Payer ID:Not on file Group ID:Not on file Type:Self Pay Address: [place] [employer] SELF PAY NO INSURANCE Member Subscriber Plan / Payer (Ef fective for All Dates) Name:Lavern Shields Member ID:Not on file Relation to Subscriber:Not on file Name:LAVERN SHIELDS Subscriber ID:Not on file Address: [facility] [address] [place] [address] Payer ID:Not on file Group ID:Not on file Type:Self Pay Address: [place] [employer] SELF PAY NO INSURANCE Member Subscriber Plan / Payer (Ef fective for All Dates) Name:Lavern Shields Member ID:Not on file Relation to Subscriber:Not on file Name:LAVERN SHIELDS Subscriber ID:Not on file Address: [address] [place] [id number] Payer ID:Not on file Group ID:Not on file Type:Self Pay Address: [place]
--- OUTSIDE RECORDS SUMMARY | 2025-06-16 13:45 | XMS_ITS | Clinical Summary ---
Author Organization [facility] Address [address] [place] [phone] Phone Care Team Providers Care Piano Tuner Name Role Phone Unavailable Primary Care Provider [...] 19+ 3-dose series) 2005 Pap Smear 2007 Human Papillomavirus (HPV) Immunization (1 - 3-dose SCDM series) 2013 Cervical Cancer Screening (CCS) 2016 HPV/Cotest 2016 SARS-COV-2 Immunization ( season) 2024 08/29/2023, 08/14/2021, 01/06/2021, Additional history exists Influenza Immunization (#1) 2025 08/14/2021, 1 Respiratory Syncytial Virus (RSV) Immunization (Adult) (1 [...]
--- OUTSIDE RECORDS SUMMARY | 2025-06-16 13:45 | XMS_ITS | Encounter Summary ---
Author Organization [facility] Address [address] [place] [address] Phone Care Team Providers Care Flight Engineer Instructor Name Role Phone Unavailable Primary Care Provider Unavailabl e Encounter Details Date Type Department Care Team (Late st Contact Info) Description 02/03/2024 Lab Requisition [facility] [address] [place] [address] Josh Bedolla, PAC [address] [place] [address] Encounter for pre-employment examination Social [...] 0.40 <8.01 IU/mL 02/05/2024 9:43 AM CDT [facility] TB ANTIGEN 1 0.00 <0.35 IU/mL 02/05/2024 9:43 AM CDT [facility] TB ANTIGEN 2 0.00 <0.35 IU/mL 02/05/2024 9:43 AM CDT [facility] MITOGEN CONTROL 9.60 >0.49 IU/mL 02/05/20 9:43 AM CDT [facility] INTEPRETATION TB NEGATIVE NEGATIVE, NEGATIVE (TB antigen response less than 25% of internal negative control value) 02/05/2024 9:43 AM CDT [facility] Comment:No immune response t o Mycobacterium tuberculosis antigens was noted. M. tuberculosis infection unlikely. Blood No Phlebotomy Charged / Unknown 02/03/2024 12:00 PM CDT 02/03/2024 3:38 PM CDT Narrative [facility] - 02/05/2024 9:43 AM CDT A POSITIVE [...] Josh Bedolla PAC IMMUNOLOGY ORDERABLES Final Result [facility] [address] [place] [address], documented in this encounter Visit Diagnoses Diagnosis Encounter for pre-employment examination Health examination of defined subpopulation documented in this encounter
[2025-06-16 13:49] VITALS: BP 116/82; PULSE 77; RESP 18; TEMP 36.7; O2SAT 99
--- NOTE | 2025-06-16 13:52 | ED.UPPEXIN ---
HPI - Extremity Injury (Upper) General Chief Complaint: Extremity Injury, Upper Stated Complaint: R swollen thumb Time Seen by Provider: 06/16/25 13:55 Source: patient Mode of arrival: ambulatory Limitations: no limitations History of Present Illness HPI narrative: Lavern is a 39-year-old female patient presenting to the clinic today with complaints of a right thumb injury. She was seen at the [facility] today and was evaluated for this injury. She reports she shut her thumb in a car door. Has pain and swelling to the right thumb with bleeding underneath the thumbnail. She had x-ray done at the [facility] and was negative for any sign of fracture or malalignment. They were unable to cauterize and drain the subungual hematoma. Patient is requesting for this subungual hematoma to be drained in the clinic today. Related Data Home Medications ?Medication ?Instructions ?Recorded ?Confirmed ?Last Taken ?Type levonorgestrel (Mirena) 1 device intrauterine ONCE 07/13/23 05/02/25 Unknown History semaglutide 1.7 mg/0.22 mL mg subcut 05/02/25 05/02/25 Unknown History subcutaneous syringe Allergies Allergy/AdvReac Type Severity Reaction Status Date / Time No Known Allergies Allergy Unknown Verified 06/16/25 13:50 Review of Systems Review of Systems: Pertinent positives per HPI. Patient denies any fever, chills, rash, headache, visual changes, dizziness, cough, runny nose, sore throat, shortness of breath, chest pain, palpitations, nausea, vomiting, diarrhea, constipation, abdominal pain, or any urinary issues. [facility] Past Medical History Medical History Sinusitis, acute ADHD Anxiety Depression Left scapula fracture Right arm fracture Right hand fracture Left hand fracture Foot fracture, right Migraine Surgical History Surgical History Hx laparoscopic cholecystectomy Minal Li MD 12/17/23 H/O wisdom tooth extraction No significant past surgical history Family History Family History Father CAD (coronary artery disease) Grandparent Leukemia CAD (coronary artery disease) Social History Social History Social History: Caffeine-soda Smoking status: Never smoker Tobacco type: cigarettes and e-cigarettes/vaping Smoking end date: 12/12/19 Additional smoking assessment comments: 3-4 cigarettes/day Alcohol intake: former Substance use: former Substance use type: marijuana Last use: 2004 Lack of Transportation: No Lack of Food: Never True Current Housing: I Have Housing Concerned About Future Housing: No Difficulty Paying Gas/Electric Bills: No Difficulty Paying for Meds: No Currently Unemployed: No Education: Trade/Vocational Certificate Difficulty w/ Childcare or Family Care: No Living arrangements: with family Spiritual care concerns: No Comments At the time of my signature, I reviewed and agree with the nursing past medical, surgical, social, and family history. There is no relevant family history pertinent to the patient complaint. Exam Narrative: General: Well-developed, well nourished, in no apparent distress Head: Normocephalic, atraumatic. Cardio: Regular rate and rhythm, s1 and s2 normal, no murmur appreciated. Resp: Clear to auscultation bilaterally, no rhonchi, rales, wheezing or rubs. Musculoskeletal: No deformity, tender to palpation over the distal right thumb, subungual hematoma to the right thumb nail, thumb nail was cauterized and drained, grossly normal range of motion, muscle strength strong and equal, peripheral pulse strong, no edema, no cyanosis, normal gait and station Course Course Emergency Course: Portions of this record may have been created with voice recognition software. Level of Care: Express Care Visit Vital Signs Vital signs: Vital Signs Temperature 36.7 C 06/16/25 13:49 Pulse Rate 77 06/16/25 13:49 Respiratory Rate 18 06/16/25 13:49 Blood Pressure 116/82 06/16/25 13:49 Pulse Oximetry 99 06/16/25 13:49 Oxygen Delivery Room Air 06/16/25 13:49 Temperature 36.7 C 06/16/25 13:49 Pulse Rate 77 06/16/25 13:49 Respiratory Rate 18 06/16/25 13:49 Blood Pressure 116/82 06/16/25 13:49 Pulse Oximetry 99 06/16/25 13:49 Oxygen Delivery Room Air 06/16/25 13:49 Vital signs reviewed Procedures Nail Trephination Nail Trephination #1: Nail Trephination Date: 06/16/25 Location (finger): right and thumb Sterile prep: other (Alcohol swabs) Method of drainage: nail cautery Procedure successful: Yes Patient tolerated procedure: well and no complications Complications: other (None) MDM - Extremity Injury (Upper) MDM Narrative Medical decision making narrative: At the time of visit patient is resting comfortably on the exam table. Patient appears to be nontoxic. Complaints of a right thumb injury. She was seen at the [facility] today and was evaluated for this injury. She reports she shut her thumb in a car door. Has pain and swelling to the right thumb with bleeding underneath the thumbnail. She had x-ray done at the [facility] and was negative for any sign of fracture or malalignment. They were unable to cauterize and drain the subungual hematoma. Patient is requesting for this subungual hematoma to be drained in the clinic today. Procedures: Subungual hematoma drained in the clinic using cauterization. Area was cleansed with alcohol swabs prior to drainage. Approximately 1.5 mL was expressed/drain. Patient tolerated well. Area was re-cleansed with alcohol and a Band-Aid was applied. Plan: Patient had subungual hematoma that was drained in the clinic today. Work note was given. Supportive measures were discussed with the patient and they voiced understanding discharge instructions and agrees to treatment plan. Return precautions reviewed Differential Diagnosis Differential diagnosis: Likely other (Subungual hematoma) Discharge Plan Discharge Clinical Impression: Subungual hematoma of right thumb Qualifiers: Encounter type: initial encounter Qualified Code(s): S60.111A - Contusion of right thumb with damage to nail, initial encounter Patient Disposition: Home Condition: Stable Instructions: Antibiotic Form, Subungual Hematoma (ED) Additional Instructions: Subungual hematoma drained in the clinic today using cautery. Keep area clean and dry Change Band-Aid dressing as often as needed May take Tylenol or Motrin as needed for pain May apply ice pack to the affected area to help alleviate pain and swelling. Follow-up with your PCP for wound check in 3 days Watch for signs and symptoms of infection-redness, fever, increase in pain, increase in swelling, purulent drainage, or streaking Patient Language: Belarusian Prescriptions: No Action Mirena 21 mcg/24 hours (8 yrs) 52 mg intrauterine device 1 device intrauterine ONCE Patient Comments: Placed by HARPOON ENGAGEMENT PLANNING OPERATOR Rx Instructions: as a single dose semaglutide 1.7 mg/0.22 mL syringe subcut Patient Comments: Ordered by JEANIE florian in [place], [place] Follow-up/Referrals: Monet Samson DO [Primary Care Provider, Family Practice] Stand Alone Forms: Work/School Release IP Time of Disposition: 14:00 Quality NIHSS Nursing Documentation ED NIHSS nursing documentation: reviewed/agree
== END 2025-06-16 14:07 | disposition home or self-care (01) ==
PROVIDERS: Emergency Provider Nurse Practitioner Family; PCP Family Medicine
DX: S60.111A Contusion of right thumb with damage to nail, initial encounter (principal); F17.290 Nicotine dependence, other tobacco product, uncomplicated; W23.0XXA Caught, crushed, jammed, or pinched between moving objects, initial encounter
CPT/HCPCS: 11740; 73130; 99213; G0463

== ENCOUNTER 2025-06-28 12:38 | Emergency (ER) | payer OTHER, SELFPAY ==
[2025-06-28 12:47] VITALS: BP 116/81; PULSE 91; RESP 16; TEMP 36.4; O2SAT 99
--- NOTE | 2025-06-28 12:51 | ED_ITS ---
HPI - Headache General Chief Complaint: Headache Stated Complaint: HEADACHE/NEEDS WORK NOTE Time Seen by Provider: 06/28/25 12:52 Mode of arrival: ambulatory Limitations: no limitations History of Present Illness HPI Narrative: 39-year-old female presents with concern for migraine headache. She reports history of migraines. She reports she was driving to work morning when she had her vision blacked out momentarily and then she got a migraine. She reports the headache is improved slightly but is not gone. She missed work and is requesting a work note. She reports she does not take migraine medicine because it makes her sick. She denies any current nausea or vomiting. Denies weakness in any extremity. MD elicited complaint: migraine Related Data Home Medications ?Medication ?Instructions ?Recorded ?Confirmed ?Last Taken ?Type levonorgestrel (Mirena) 1 device intrauterine ONCE 0 07/13/23 05/02/25 Unknown History semaglutide 1.7 mg/0.22 mL mg subcut 05/02/25 05/02/25 Unknown History subcutaneous syringe Allergies Allergy/AdvReac Type Severity Reaction Status Date / Time No Known Allergies Allergy Verified 06/28/25 12:53 Review of Systems Review of Systems: CONSTITUTIONAL: Denies malaise, chills, sweats, or fever. EYES: Reports momentay visual changes. Denies redness or discharge. GASTROINTESTINAL: Denies nausea, vomiting MUSCULOSKELETAL: Denies back pain, joint pain, or myalgia. NEUROLOGIC: Denies numbness, weakness. Reports headache. All systems reviewed & are unremarkable except as noted in HPI and below PMFSH Past Medical History Medical History Sinusitis, acute ADHD Anxiety Depression Left scapula fracture Right arm fracture Right hand fracture Left hand fracture Foot fracture, right Migraine Surgical History Surgical History Hx laparoscopic cholecystectomy Minal Li MD 12/17/23 H/O wisdom tooth extraction No significant past surgical history Family History Family History Father CAD (coronary artery disease) Grandparent Leukemia CAD (coronary artery disease) Social History Social History Social History: Caffeine-soda Smoking status: Never smoker Tobacco type: cigarettes and e-cigarettes/vaping Smoking end date: 12/12/19 Additional smoking assessment comments: 3-4 cigarettes/day Alcohol intake: former Substance use: former Substance use type: marijuana Last use: 2004 Lack of Transportation: No Lack of Food: Never True Current Housing: I Have Housing Concerned About Future Housing: No Difficulty Paying Gas/Electric Bills: No Difficulty Paying for Meds: No Currently Unemployed: No Education: Trade/Vocational Certificate Difficulty w/ Childcare or Family Care: No Living arrangements: with family Spiritual care concerns: No Comments At time of signature, agree with nursing past medical, surgical, social and family history. There is no relevant family history pertinent to the presenting complaint Exam Narrative: GENERAL: Well-appearing, well-nourished, and in no acute distress. HEAD: Normocephalic, atraumatic. EYES: PERRLA, sclera clear, and EOMI. No nystagmus. ENT: Nares clear no rhinorrhea or epistaxis. Mucous membranes moist. NECK: Supple. CHEST: No respiratory distress. Speaks in full sentences. HEART: Regular rate and rhythm. No murmur heard. Normal peripheral pulses. EXTREMITIES: Normal range of motion. No edema. Normal strength and sensation. SKIN: Warm, dry, no visible rash. NEURO: Alert and oriented x3. No focal deficits. Cranial nerves II through XII grossly intact PSYCH: Normal mood and affect Course Course Emergency Course: Patient is aware of diagnosis, understands and agrees to treatment plan. Anticipatory guidance given. Patient agrees to follow-up as directed and is aware of reasons to seek care at the emergency department. Portions of this record may have been created with voice recognition software Level of Care: Express Care Visit Vital Signs Vital signs: Vital Signs Temperature 97.6 F 06/28/25 12:47 Pulse Rate 91 06/28/25 12:47 Respiratory Rate 16 06/28/25 12:47 Blood Pressure 116/81 06/28/25 12:47 Pulse Oximetry 99 06/28/25 12:47 Temperature 97.6 F 06/28/25 12:47 Pulse Rate 91 06/28/25 12:47 Respiratory Rate 16 06/28/25 12:47 Blood Pressure 116/81 06/28/25 12:47 Pulse Oximetry 99 06/28/25 12:47 Reviewed. Critical Care Time Critical Care Time Critical Care Time: No Discharge Plan Discharge Clinical Impression: Headache Patient Disposition: Home Condition: Stable Instructions: Migraine Headache (ED) Additional Instructions: 1) Please follow-up with your primary care doctor in the next 1-2 days. 2) If you have any worsening of symptoms or any other urgent concerns please go to the ER. 3) Please take medications as prescribed and continue taking your home medications as usual. 4) Please read and follow information included in discharge instructions. Patient Language: Maltese Prescriptions: New ketorolac 10 mg tablet 10 mg PO Q6H PRN (Reason: pain) 5 Days Qty: 20 0RF No Action Mirena 21 mcg/24 hours (8 yrs) 52 mg intrauterine device 1 device intrauterine ONCE Patient Comments: Placed by BOREMATIC MACHINE OPERATOR Rx Instructions: as a single dose semaglutide 1.7 mg/0.22 mL syringe subcut Patient Comments: Ordered by JEANIE florian in [place], [place] Follow-up/Referrals: Monet Samson DO [Primary Care Provider, Family Practice] Stand Alone Forms: Work/School Release IP Time of Disposition: 12:58
== END 2025-06-28 12:59 | disposition home or self-care (01) ==
PROVIDERS: Emergency Provider Nurse Practitioner; PCP Family Medicine
DX: R51.9 Headache, unspecified (principal)
CPT/HCPCS: 99213; G0463

== ENCOUNTER 2025-07-10 15:19 | Emergency (ER) | payer OTHER, SELFPAY ==
[2025-07-10 15:24] VITALS: BP 125/65; PULSE 85; RESP 16; TEMP 36.3; O2SAT 100
--- NOTE | 2025-07-10 15:38 | ED_ITS ---
HPI - URI/Sore Throat General Chief Complaint: Upper Respiratory Infection Stated Complaint: Feels Sick Time Seen by Provider: 07/10/25 15:38 Source: patient, RN notes reviewed and old records reviewed Mode of arrival: ambulatory Limitations: no limitations History of Present Illness HPI Narrative: 39-year-old female presents to the [facility] with flu-like symptoms, head congestion, sore throat that started late Thursday night or early Thursday morning. Patient denies cough or fevers. States that she was exposed to influenza 1 week ago. has taken Advil. Requesting a work note Onset (ago): day(s) (1-2) Treatments prior to arrival: acetaminophen and ibuprofen Related Data Home Medications ?Medication ?Instructions ?Recorded ?Confirmed ?Last Taken ?Type levonorgestrel (Mirena) 1 device intrauterine ONCE 0 07/13/23 07/10/25 Unknown History semaglutide 1.7 mg/0.22 mL 30 mg subcut WEEKLY 5 07/10/25 Unknown History subcutaneous syringe Allergies Allergy/AdvReac Type Severity Reaction Status Date / Time No Known Allergies Allergy Verified 07/10/25 15:25 Review of Systems Review of Systems: All systems reviewed & are unremarkable except as noted in HPI and below Constitutional: Constitutional: Reports no additional constitutional complaints ENT: Reports as per HPI Cardiovascular: Cardiovascular: Reports no additional cardiovascular complaints, Denies chest pain and Denies dyspnea Respiratory: Respiratory: Reports no additional respiratory complaints, Denies chest congestion, Denies cough and Denies dyspnea Musculoskeletal: Musculoskeletal: Reports no additional musculoskeletal complaints Integumentary/Breasts: Skin/Breast: Reports system reviewed and no additional complaints, except as docu PMFSH Past Medical History Medical History Sinusitis, acute ADHD Anxiety Depression Left scapula fracture Right arm fracture Right hand fracture Left hand fracture Foot fracture, right Migraine Surgical History Surgical History Hx laparoscopic cholecystectomy Minal Li MD 12/17/23 H/O wisdom tooth extraction No significant past surgical history Family History Family History Father CAD (coronary artery disease) Grandparent Leukemia CAD (coronary artery disease) Social History Social History Social History: Caffeine-soda Smoking status: Never smoker Tobacco type: cigarettes and e-cigarettes/vaping Smoking end date: 12/12/19 Additional smoking assessment comments: 3-4 cigarettes/day Alcohol intake: former Substance use: former Substance use type: marijuana Last use: 2004 Lack of Transportation: No Lack of Food: Never True Current Housing: I Have Housing Concerned About Future Housing: No Difficulty Paying Gas/Electric Bills: No Difficulty Paying for Meds: No Currently Unemployed: No Education: Trade/Vocational Certificate Difficulty w/ Childcare or Family Care: No Living arrangements: with family Spiritual care concerns: No Comments At the time of my signature, I reviewed and agree with the nursing past medical, surgical, social, and family history. There is no relevant family history pertinent to the patient complaint. Exam Const: General: cooperative, healthy appearing, comfortable, no acute distress, well developed, alert and well nourished Nutritional Appearance: well nourished and obese Orientation/consciousness: patient oriented x3 Limitations: no limitations HENMT: Head: normal to inspection Ears: hearing grossly normal bilaterally, external ears normal, TM's normal bilaterally, EAC's normal, mastoids normal and no periauricular adenopathy Face/Nose/Sinus: Normal external nose present and normal facial exam Mouth: Yes Normal oral and palatal mucosa present, Yes lip normal, Yes tongue normal and Yes moist mucous membranes Throat: posterior oropharynx normal, uvula midline and no uvular edema Eyes: General: appearance normal, both eyes and all related structures Alignment and Position: alignment normal Neck: Neck: normal visual inspection, full ROM, no lymphadenopathy and no meningeal signs Chest: Chest palpation & inspection: normal inspection of the chest Resp: Effort & Inspection: normal respiratory effort and able to speak in complete sentences Auscultation: clear to auscultation bilaterally, no crackles, no rales, no rhonchi and no wheezes Cardio: Rate: regular rate Skin: General skin exam: normal color and no rashes or lesions noted Neuro: General: patient oriented x3, gait normal, moves all extremities and no meningeal signs Cognition (Neuro): normal cognition Speech: normal speech Gait exam (Neuro): Normal gait present Extrem: General: normal to inspection, full ROM, capillary refill normal and normal gait Psych: Appearance: grossly normal and well kempt Mental Status: mental status grossly normal Speech and movement: Normal speech and movement present and Clear speech present Affect: normal affect Attitude: cooperative Course Course Level of Care: Express Care Visit Vital Signs Vital signs: Vital Signs Temperature 97.4 F L 07/10/25 15:24 Pulse Rate 85 07/10/25 15:24 Respiratory Rate 16 07/10/25 15:24 Blood Pressure 125/65 07/10/25 15:24 Pulse Oximetry 100 07/10/25 15:24 Oxygen Delivery Room Air 07/10/25 15:24 Temperature 97.4 F L 07/10/25 15:24 Pulse Rate 85 07/10/25 15:24 Respiratory Rate 16 07/10/25 15:24 Blood Pressure 125/65 07/10/25 15:24 Pulse Oximetry 100 07/10/25 15:24 Oxygen Delivery Room Air 07/10/25 15:24 Reviewed MDM - URI/Sore Throat MDM Narrative Medical decision making narrative: Patient sitting in exam room. Patient is nontoxic, vitals stable. Patient with 1-2 day history of head congestion and sore throat. Denies any other symptoms. Was concerned that she was exposed to influenza last week. Influenza and COVID test were negative, strep test was negative, will culture. Patient appropriate for outpatient treatment with close follow Discharge instructions reviewed with patient, as well as provided in writing per nursing staff. The instructions also include specific and strict return/GO TO THE ER as well as f/u information. All questions have been answered, and the patient deny any further questions with discharge and discharge plan. Some parts of this dictation were generated by voice recognition software and may contain typographical and/or grammatical inaccuracies. Differential Diagnosis Differential diagnosis: Likely upper respiratory infection, otitis media, sinusitis, viral infection, bronchitis, influenza and pharyngitis Lab Data Labs: Lab Results 07/10/25 Range/Units 15:30 POC Influenza A Ag Negative (Negative) POC Influenza B Ag Negative (Negative) POC SARS CoV-2 Ag Negative (Negative) POC Grp A Strep Screen Negative (Negative) Reviewed Critical Care Time Critical Care Time Critical Care Time: No Discharge Plan Discharge Clinical Impression: Upper respiratory infection Qualifiers: URI type: unspecified viral URI Qualified Code(s): J06.9 - Acute upper respiratory infection, unspecified Patient Disposition: Home Condition: Stable Instructions: Viral Syndrome (ED) Additional Instructions: Your rapid strep swab was negative today at [facility]. A throat culture will be sent to the laboratory for further testing. If the test is positive, you will receive a phone call within 48 hours and an appropriate antibiotic will be initiated at that time. Your rapid COVID test were negative Your rapid flu test was negative Your symptoms are likely due to a viral illness, which is not treated with antibiotics. Typically viral infections last 7-10 days, can linger for couple of weeks. It is very important to treat your symptoms. Drink plenty of water, Gatorade, Pedialyte, ice pops or Jell-O. -Alternate Tylenol and Motrin per package directions for fever or pain. You can alternate every 4 hours -Antihistamine medication such as Zyrtec/Claritin/Paola during the day can help improve symptoms. -doing daily nasal irrigations can help relieve pressure your sinuses. Things like a Neti pot -Use Flonase twice a day for 5 days then daily to help reduce the inflammation and dry up your sinuses. -You can also use Mucinex. Be sure to drink plenty of water with this medication at least 8 ounces with every dose and it is important to drink 8 to 10 glasses of water per day. Water is a natural decongestant -Eat and drink things that are easy to swallow, like tea or soup, or popsicles. -Oral rinses such as: Salt water gargles and/or may use topical anesthetic (eg. Chloraseptic spray) or lozenges to relieve dryness or throat pain). -Frequent hand washing or hand welding technician is one of the best ways to prevent spread of infection. -Using a vaporizer or humidifier at night will also help thin secretions and help with coughing up phlegm. -Follow up with primary care provider in 7-10 days if condition is not improving - For new or worsening symptoms go directly to the nearest ER Patient Language: Salvadorean Prescriptions: No Action Mirena 21 mcg/24 hours (8 yrs) 52 mg intrauterine device 1 device intrauterine ONCE Patient Comments: Placed by CLASSIFICATION CLERK Rx Instructions: as a single dose semaglutide 1.7 mg/0.22 mL syringe 30 mg subcut WEEKLY Patient Comments: Ordered by JEANIE florian in [place], [place] Follow-up/Referrals: Monet Samson DO [Primary Care Provider, Family Practice] - 2 Weeks Stand Alone Forms: Work/School Release IP Time of Disposition: 15:45
[2025-07-10 15:51] LABS: EDCOVIDSCREEN Negative (Negative); EDINFLUASCREEN Negative (Negative); EDINFLUBSCREEN Negative (Negative); EDSTREPNEGPOS1 Negative (Negative)
== END 2025-07-10 15:51 | disposition home or self-care (01) ==
PROVIDERS: Emergency Provider Nurse Practitioner; PCP Family Medicine
DX: J06.9 Acute upper respiratory infection, unspecified (principal); Z20.822 Contact with and (suspected) exposure to COVID-19
CPT/HCPCS: 87081; 87426; 87804; 87880; 99213; G0463

== ENCOUNTER 2025-08-03 08:01 | Emergency (ER) | payer OTHER, SELFPAY ==
--- NOTE | 2025-08-03 08:03 | ED_ITS ---
HPI - Eye Problem General Chief complaint: Eye Problems Stated complaint: EYE REDNESS Time Seen by Provider: 08/03/25 08:10 Source: patient, RN notes reviewed and old records reviewed Mode of arrival: ambulatory Limitations: no limitations History of Present Illness HPI Narrative: 39-year-old female presents to the [facility] with right eye redness, crusting this morning. Denies any change in vision or blurry vision. Denies any injury. Patient does not wear contact lenses. Does normally wear glasses, does not have them with her. No treatment prior to arrival Onset (ago): hour(s) Eye Symptoms: redness, itching and discharge Treatments Prior to Arrival: none Related Data Home Medications ?Medication ?Instructions ?Recorded ?Confirmed ?Last Taken ?Type levonorgestrel (Mirena) 1 device intrauterine ONCE 0 07/13/23 08/03/25 Unknown History semaglutide 1.7 mg/0.22 mL 30 mg subcut WEEKLY 5 08/03/25 Unknown History subcutaneous syringe Allergies Allergy/AdvReac Type Severity Reaction Status Date / Time No Known Allergies Allergy Verified 08/03/25 08:15 Review of Systems Review of Systems: All systems reviewed & are unremarkable except as noted in HPI and below Constitutional: Constitutional: Reports no additional constitutional complaints Eyes: Eyes: Reports as per HPI, Denies change in vision, Reports irritation and Reports itchy eyes ENT: Reports system reviewed and no additional complaints, except as documented Cardiovascular: Cardiovascular: Reports no additional cardiovascular complaints, Denies chest pain and Denies dyspnea Respiratory: Respiratory: Reports no additional respiratory complaints, Denies chest congestion, Denies cough and Denies dyspnea Musculoskeletal: Musculoskeletal: Reports no additional musculoskeletal complaints COUNT INCLUDES THE [facility] Past Medical History Medical History Sinusitis, acute ADHD Anxiety Depression Left scapula fracture Right arm fracture Right hand fracture Left hand fracture Foot fracture, right Migraine Surgical History Surgical History Hx laparoscopic cholecystectomy Minal Li MD 12/17/23 H/O wisdom tooth extraction No significant past surgical history Family History Family History Father CAD (coronary artery disease) Grandparent Leukemia CAD (coronary artery disease) Social History Social History Social History: Caffeine-soda Smoking status: Never smoker Tobacco type: cigarettes and e-cigarettes/vaping Smoking end date: 12/12/19 Additional smoking assessment comments: 3-4 cigarettes/day Alcohol intake: former Substance use: former Substance use type: marijuana Last use: 2004 Lack of Transportation: No Lack of Food: Never True Current Housing: I Have Housing Concerned About Future Housing: No Difficulty Paying Gas/Electric Bills: No Difficulty Paying for Meds: No Currently Unemployed: No Education: Trade/Vocational Certificate Difficulty w/ Childcare or Family Care: No Living arrangements: with family Spiritual care concerns: No Comments At the time of my signature, I reviewed and agree with the nursing past medical, surgical, social, and family history. There is no relevant family history pertinent to the patient complaint. Exam Const: General: cooperative, healthy appearing, comfortable, no acute distress, well developed, alert and well nourished Nutritional Appearance: well nourished Orientation/consciousness: patient oriented x3 Limitations: no limitations HENMT: Head: normal to inspection Ears: hearing grossly normal bilaterally, external ears normal, TM's normal bilaterally, mastoids normal, no periauricular adenopathy and Abnormal EAC present Mouth: Yes Normal oral and palatal mucosa present, Yes lip normal, Yes tongue normal and Yes moist mucous membranes Throat: posterior oropharynx normal, uvula midline and no uvular edema Eyes: General: appearance normal, both eyes and all related structures Alignment and Position: alignment normal Eyelids: eyelid abnormality right upper eyelid lid margins crusty/scaly; without erythema and with no swelling and right lower eyelid lid margins crusty/scaly; without inflamed cyst, without erythema, with no swelling and nontender Conjunctivae: conjunctival abnormality right conjunctival injection localized Neck: Neck: normal visual inspection, full ROM, no lymphadenopathy and no meningeal signs Chest: Chest palpation & inspection: normal inspection of the chest Resp: Effort & Inspection: normal respiratory effort and able to speak in complete sentences Auscultation: clear to auscultation bilaterally, no crackles, no rales, no rhonchi and no wheezes Cardio: Rate: regular rate Skin: General skin exam: normal color and no rashes or lesions noted Neuro: General: patient oriented x3, gait normal, moves all extremities and no meningeal signs Cognition (Neuro): normal cognition Speech: normal speech Gait exam (Neuro): Normal gait present Extrem: General: normal to inspection, full ROM, capillary refill normal and normal gait Psych: Appearance: grossly normal and well kempt Mental Status: mental status grossly normal Speech and movement: Normal speech and movement present and Clear speech present Affect: normal affect Attitude: cooperative Course Course Level of Care: Express Care Visit Vital Signs Vital signs: Vital Signs Temperature 97.5 F L 08/03/25 08:10 Pulse Rate 87 08/03/25 08:10 Respiratory Rate 16 08/03/25 08:10 Blood Pressure 120/85 08/03/25 08:10 Pulse Oximetry 99 08/03/25 08:10 Temperature 97.5 F L 08/03/25 08:10 Pulse Rate 87 08/03/25 08:10 Respiratory Rate 16 08/03/25 08:10 Blood Pressure 120/85 08/03/25 08:10 Pulse Oximetry 99 08/03/25 08:10 Reviewed MDM - Eye Problem MDM Narrative Medical decision making narrative: Patient sitting comfortably in exam room. Patient is nontoxic, vitals stable. Patient woke up this morning with the eye crusted shut, redness. Denies any change in vision. Patient is supposed to wear glasses but does not have it with her. Vision is 20/50, right, left Exam most consistent with conjunctivitis to the right. Will prescribe eyedrops Patient appropriate for outpatient treatment with close follow Discharge instructions reviewed with patient, as well as provided in writing per nursing staff. The instructions also include specific and strict return/GO TO THE ER as well as f/u information. All questions have been answered, and the patient deny any further questions with discharge and discharge plan. Some parts of this dictation were generated by voice recognition software and may contain typographical and/or grammatical inaccuracies. Differential Diagnosis Differential diagnosis: Likely corneal abrasion and conjunctivitis Critical Care Time Critical Care Time Critical Care Time: No Discharge Plan Discharge Clinical Impression: Conjunctivitis of right eye Patient Disposition: Home Condition: Stable Instructions: Antibiotic Form, Conjunctivitis (ED) Additional Instructions: Apply a cool, damp compress to your affected eye. Be sure to use a clean cloth each time to avoid spreading the infection. Gently clean your eyes with wet cotton balls or pads to remove crusty buildup or irritating discharge. Use eyedrops as prescribed Maintain good hygiene and only touch your eyes with freshly washed hands. You should follow-up with an eye doctor within the next 72 hours if your not seeing improvement Quantum: Samantha- [phone] [facility] [phone] Quintin [phone] Corin: [facility] [phone] or [phone] [facility] [phone] [facility] [phone] [facility] [phone] [facility]- [phone] Patient Language: Emirati Prescriptions: New polymyxin B sulf-trimethoprim 10,000 unit- 1 mg/mL drops 1 drp RIGHT EYE QID 7 Days Qty: 10 0RF Rx Instructions: while awake; do not exceed 6 doses in 24 hours No Action Mirena 21 mcg/24 hours (8 yrs) 52 mg intrauterine device 1 device intrauterine ONCE Patient Comments: Placed by DAIRY EQUIPMENT MECHANIC Rx Instructions: as a single dose semaglutide 1.7 mg/0.22 mL syringe 30 mg subcut WEEKLY Patient Comments: Ordered by JEANIE florian in [place], [place] Follow-up/Referrals: Monet Samson DO [Primary Care Provider, Family Practice] - 1 Week Stand Alone Forms: Work/School Release IP Time of Disposition: 08:23
[2025-08-03 08:10] VITALS: BP 120/85; PULSE 87; RESP 16; TEMP 36.4; O2SAT 99
== END 2025-08-03 08:27 | disposition home or self-care (01) ==
PROVIDERS: Emergency Provider Nurse Practitioner; PCP Family Medicine
DX: H10.9 Unspecified conjunctivitis (principal); F17.210 Nicotine dependence, cigarettes, uncomplicated
CPT/HCPCS: 99213; G0463

== ENCOUNTER 2025-09-18 11:39 | Emergency (ER) | payer OTHER, SELFPAY ==
[2025-09-18 11:50] VITALS: BP 123/75; PULSE 104; RESP 16; TEMP 36.6; O2SAT 100
[2025-09-18 12:06] LABS: EDCOVIDSCREEN Positive (Negative); EDINFLUASCREEN Negative (Negative); EDINFLUBSCREEN Negative (Negative); EDSTREPNEGPOS1 Positive (Negative)
--- NOTE | 2025-09-18 12:57 | ED.URI ---
HPI - URI/Sore Throat General Chief Complaint: Upper Respiratory Infection Stated Complaint: Cold Symptoms Time Seen by Provider: 09/18/25 12:00 Source: patient and RN notes reviewed Mode of arrival: ambulatory Limitations: no limitations History of Present Illness HPI Narrative: 39-year-old female patient presents today complaining of a 2 day history of nasal congestion, rhinorrhea, sore throat, body aches, productive cough, fatigue. She initially had a fever up to 102 but this has since resolved. She has been taking DayQuil and NyQuil with mild relief. Related Data Home Medications ?Medication ?Instructions ?Recorded ?Confirmed ?Last Taken ?Type levonorgestrel (Mirena) 1 device intrauterine ONCE 07/13/23 08/03/25 Unknown History semaglutide 1.7 mg/0.22 mL 30 mg subcut WEEKLY 05/02/25 08/03/25 Unknown History subcutaneous syringe Allergies Allergy/AdvReac Type Severity Reaction Status Date / Time No Known Allergies Allergy Verified 09/18/25 11:44 [facility] Past Medical History Medical History Sinusitis, acute ADHD Anxiety Depression Left scapula fracture Right arm fracture Right hand fracture Left hand fracture Foot fracture, right Migraine Surgical History Surgical History Hx laparoscopic cholecystectomy Minal Li MD 12/17/23 H/O wisdom tooth extraction No significant past surgical history Family History Family History Father CAD (coronary artery disease) Grandparent Leukemia CAD (coronary artery disease) Social History Social History Social History: Caffeine-soda Smoking status: Never smoker Tobacco type: cigarettes and e-cigarettes/vaping Smoking end date: 12/12/19 Additional smoking assessment comments: 3-4 cigarettes/day Alcohol intake: former Substance use: former Substance use type: marijuana Last use: 2004 Lack of Transportation: No Lack of Food: Never True Current Housing: I Have Housing Concerned About Future Housing: No Difficulty Paying Gas/Electric Bills: No Difficulty Paying for Meds: No Currently Unemployed: No Education: Trade/Vocational Certificate Difficulty w/ Childcare or Family Care: No Living arrangements: with family Spiritual care concerns: No Comments At time of signature, I have reviewed and agree with nursing past medical, surgical, social and family history unless otherwise noted. Please see nursing chart for further information. There is no relevant family history pertinent to the presenting complaint Exam Narrative: GENERAL: Mildly ill-appearing, well-nourished, and in no acute distress. HEAD: Normocephalic, atraumatic. EYES: EOMI. No redness or drainage. Conjunctivae normal. ENT: Mucous membranes pink and moist. Nares congested. No rhinorrhea. TMs normal bilaterally. Throat mildly erythematous without edema or exudate. Uvula midline. NECK: Normal AROM. Supple. No lymphadenopathy. CHEST: No respiratory distress. Clear to auscultation. HEART: Regular rate and rhythm. No murmur appreciated. EXTREMITIES: Normal range of motion. No edema. SKIN: Warm, dry, no rash. Capillary refill normal. Normal skin turgor. NEURO: No focal deficits. Alert and oriented x3. Gait steady. PSYCH: Normal affect. No signs of depression or anxiety. Course Course Level of Care: Express Care Visit Vital Signs Vital signs: Vital Signs Temperature 98 F 09/18/25 11:50 Pulse Rate 104 H 09/18/25 11:50 Respiratory Rate 16 09/18/25 11:50 Blood Pressure 123/75 09/18/25 11:50 Pulse Oximetry 100 09/18/25 11:50 Temperature 98 F 09/18/25 11:50 Pulse Rate 104 H 09/18/25 11:50 Respiratory Rate 16 09/18/25 11:50 Blood Pressure 123/75 09/18/25 11:50 Pulse Oximetry 100 09/18/25 11:50 Reviewed MDM - URI/Sore Throat MDM Narrative Medical decision making narrative: 39-year-old female patient presents today complaining of a 2 day history of nasal congestion, rhinorrhea, sore throat, body aches, productive cough, fatigue. She initially had a fever up to 102 but this has since resolved. She has been taking DayQuil and NyQuil with mild relief. Upon exam, patient is mildly ill appearing with nasal congestion and mild erythema in the throat. COVID-19 and rapid strep positive. Influenza negative. Prescription for amoxicillin sent to pharmacy. Anticipatory guidance given. Vital signs stable. Patient agrees with plan. Differential Diagnosis Differential diagnosis: Likely upper respiratory infection, viral infection, influenza, pharyngitis and other (Strep throat, COVID) Lab Data Attestation: I reviewed the patient's lab results. Labs: Lab Results 09/18/25 Range/Units 12:03 POC Influenza A Ag Negative (Negative) POC Influenza B Ag Negative (Negative) POC SARS CoV-2 Ag Positive (Negative) POC Grp A Strep Screen Positive (Negative) Critical Care Time Critical Care Time Critical Care Time: No Discharge Plan Discharge Clinical Impression: COVID-19, Strep throat Patient Disposition: Home Condition: Stable Instructions: Antibiotic Form, Strep Throat (DC), COVID-19 (Coronavirus Disease 2019) (ED) Additional Instructions: You have tested positive for strep throat and COVID-19. Please take the amoxicillin as prescribed until gone. Continue [id number] medication as needed. Follow-up with your PCP in 1 week if symptoms are not improving. Go to the ER immediately if you develop any worsening symptoms such as chest pain, shortness of breath. Patient Language: Bermudian Prescriptions: New amoxicillin 875 mg tablet 875 mg PO Q12H 10 Days Qty: 20 0RF No Action Mirena 21 mcg/24 hours (8 yrs) 52 mg intrauterine device 1 device intrauterine ONCE Patient Comments: Placed by PREPRINT ANALYST Rx Instructions: as a single dose semaglutide 1.7 mg/0.22 mL syringe 30 mg subcut WEEKLY Patient Comments: Ordered by JEANIE florian in [place], [place] Follow-up/Referrals: Monet Samson DO [Primary Care Provider, Family Practice] Stand Alone Forms: Work/School Release IP Time of Disposition: 12:08
== END 2025-09-18 12:11 | disposition home or self-care (01) ==
PROVIDERS: Emergency Provider Nurse Practitioner; PCP Family Medicine
DX: U07.1 COVID-19 (principal); J02.0 Streptococcal pharyngitis; Z87.891 Personal history of nicotine dependence
CPT/HCPCS: 87426; 87804; 87880; 99213; G0463

== ENCOUNTER 2025-10-05 08:55 | Emergency (ER) | payer OTHER, SELFPAY ==
[2025-10-05 09:11] VITALS: BP 144/88; PULSE 86; RESP 16; TEMP 37.1; O2SAT 99
--- NOTE | 2025-10-05 09:31 | ED.EYEPROB ---
HPI - Eye Problem General Chief complaint: Eye Problems Stated complaint: can't see in R eye Time Seen by Provider: 10/05/25 08:55 Source: patient Mode of arrival: ambulatory Limitations: no limitations History of Present Illness HPI Narrative: patient is a 31-year-old female who presents with migraine in loss of vision the right eye for the past 2 days. Patient reports this has happened before but it does normally last this long. Denies any trauma to eye. Patient reports she sees shadows, green lights and martinez. Reports her right-sided headache is still present but has improved in severity. patient does not take anything for migraines but has taken Advil. Related Data Home Medications ?Medication ?Instructions ?Recorded ?Confirmed ?Last Taken ?Type levonorgestrel (Mirena) 1 device intrauterine ONCE 07/13/23 08/03/25 Unknown History Allergies Allergy/AdvReac Type Severity Reaction Status Date / Time No Known Allergies Allergy Verified 10/05/25 09:24 Review of Systems Review of Systems: All systems reviewed & are unremarkable except as noted in HPI and below Constitutional: Constitutional: Denies body ache(s), Denies chills, Denies fatigue, Denies fever(s), Reports headache(s), Denies malaise and Denies weakness Eyes: Eyes: Denies blurry vision, Denies irritation and Reports loss of vision ENT: Denies otalgia, Reports headache(s), Denies nasal discharge, Denies sinus pain and Denies sore throat Cardiovascular: Cardiovascular: Denies chest pain, Denies irregular heart rhythm and Denies dyspnea Respiratory: Respiratory: Denies dyspnea Gastrointestinal: Gastrointestinal: Denies abdominal pain, Denies melena, Denies hematochezia, Denies diarrhea, Denies nausea and Denies vomiting Musculoskeletal: Musculoskeletal: Denies back pain, Denies myalgias and Denies arthralgias Integumentary/Breasts: Skin/Breast: Denies pruritus and Denies rash Neurologic: Reports headache(s), Denies loss of vision and Denies weakness Psychiatric: Psychiatric: Reports no additional psychiatric complaints Endocrine: Endocrine: Denies fatigue PMFSH Past Medical History Medical History Sinusitis, acute ADHD Anxiety Depression Left scapula fracture Right arm fracture Right hand fracture Left hand fracture Foot fracture, right Migraine Surgical History Surgical History Hx laparoscopic cholecystectomy Minal Li MD 12/17/23 H/O wisdom tooth extraction No significant past surgical history Family History Family History Father CAD (coronary artery disease) Grandparent Leukemia CAD (coronary artery disease) Social History Social History Social History: Caffeine-soda Smoking status: Never smoker Tobacco type: cigarettes and e-cigarettes/vaping Smoking end date: 12/12/19 Additional smoking assessment comments: 3-4 cigarettes/day Alcohol intake: former Substance use: former Substance use type: marijuana Last use: 2004 Lack of Transportation: No Lack of Food: Never True Current Housing: I Have Housing Concerned About Future Housing: No Difficulty Paying Gas/Electric Bills: No Difficulty Paying for Meds: No Currently Unemployed: No Education: Trade/Vocational Certificate Difficulty w/ Childcare or Family Care: No Living arrangements: with family Spiritual care concerns: No Comments At time of signature, agree with nursing past medical, surgical, social and family history. There is no relevant family history pertinent to the presenting complaint. Exam Const: General: cooperative, healthy appearing, comfortable, no acute distress and well nourished Nutritional Appearance: well nourished Orientation/consciousness: patient oriented x3 Limitations: no limitations HENMT: Head: normal to inspection, normocephalic and atraumatic Ears: hearing grossly normal bilaterally and external ears normal Face/Nose/Sinus: Normal external nose present, normal facial exam and face symmetric Face and sinus: normal facial exam and face symmetric Mouth: Yes lip normal Eyes: General: appearance normal, both eyes and all related structures Alignment and Position: alignment normal and position normal Periorbital: periorbital findings normal Eyelids: eyelids normal Pupils: Equal, round and reactive pupils present EOM: EOMs intact bilaterally Neck: Neck: normal visual inspection, full ROM and supple Chest: Chest palpation & inspection: normal inspection of the chest Resp: Effort & Inspection: normal respiratory effort and able to speak in complete sentences Auscultation: clear to auscultation bilaterally Cardio: Rate: regular rate Rhythm: regular rhythm Heart sounds: S1 normal heart sound present and S2 normal heart sound present GI: Inspection: normal to inspection Skin: General skin exam: normal color and no rashes or lesions noted Neuro: General: patient oriented x3 and moves all extremities Cranial nerves: Yes Equal, round and reactive pupils present Cognition (Neuro): normal cognition Speech: normal speech Gait exam (Neuro): Normal gait present Motor exam (neuro): 5/5 motor strength present throughout, Normal motor muscle tone present throughout and Motor abnormalities not present Sensory Exam: normal sensation Extrem: General: normal to inspection, full ROM and no edema Psych: Appearance: grossly normal and well kempt Mental Status: mental status grossly normal Speech and movement: Normal speech and movement present Affect: normal affect Attitude: cooperative Thought process: Normal thought process present Course Course Emergency Course: patient being transferred to [facility]. patient needs further workup to determine cause of loss of vision. Patient needs labs and imaging along with ophthalmology consult. Posterior stroke versus ocular migraine verses retinal detachment Portions of this record may have been created with voice recognition software Level of Care: Express Care Visit Vital Signs Vital signs: Vital Signs Temperature 37.1 C 10/05/25 09:11 Pulse Rate 86 10/05/25 09:11 Respiratory Rate 16 10/05/25 09:11 Blood Pressure 144/88 H 10/05/25 09:11 Pulse Oximetry 99 10/05/25 09:11 Temperature 37.1 C 10/05/25 09:11 Pulse Rate 86 10/05/25 09:11 Respiratory Rate 16 10/05/25 09:11 Blood Pressure 144/88 H 10/05/25 09:11 Pulse Oximetry 99 10/05/25 09:11 Transfer Transfered to: [facility] Transportation: Other (Private auto, refused EMS) Transfer rationale: patient needs further workup to determine cause of loss of vision. Patient needs labs and imaging along with ophthalmology consult. Posterior stroke versus ocular migraine verses retinal detachment Accepting physician: Lakia ORTIZ Narrative Medical decision making narrative: patient being transferred to [facility]. patient needs further workup to determine cause of loss of vision. Patient needs labs and imaging along with ophthalmology consult. Posterior stroke versus ocular migraine verses retinal detachment Differential Diagnosis Differential Diagnosis: Differential diagnostic considerations for eye problems include corneal abrasion, Posterior stroke versus ocular migraine verses retinal detachment Medical Records I have reviewed the following patient records and this information was taken into consideration when formulating the assessment and plan.: previous clinic visits Discharge Plan Discharge Clinical Impression: Visual loss, right eye Patient Disposition: Acute Care Hospital Condition: Guarded Prognosis Patient Language: Swedish Prescriptions: No Action Mirena 21 mcg/24 hours (8 yrs) 52 mg intrauterine device 1 device intrauterine ONCE Patient Comments: Placed by ELECTRON MICROSCOPIST Rx Instructions: as a single dose Follow-up/Referrals: Monet Samson DO [Primary Care Provider, Family Practice]
== END 2025-10-05 09:55 | disposition short-term general hospital (02) ==
LOC: EXPGOSH 08:57
PROVIDERS: Emergency Provider Nurse Practitioner Family; PCP Family Medicine
DX: H54.61 Unqualified visual loss, right eye, normal vision left eye (principal); Z87.891 Personal history of nicotine dependence
CPT/HCPCS: 99212; G0463